=== PATIENT | male | born 1975 | race Caucasian/White ===

== ENCOUNTER 2016-06-27 19:23 | Emergency (ER) | payer MEDICARE, OTHER ==
[~2016-06-27] VITALS: Ht 170.2 cm; Wt 99.8 kg
[~2016-06-27 19:23] MED LIST: /DULO30CA OR; /ESCI20TA OR; /ESCI20TA PO; /METO25TAB PO; /PANT40TA PO; /QUET10TA; ABIL5TAB PO; AMAR1TAB; AMRIX; ATIV0.5T3 PO; BACL10TA2 OR; BUPR15TA PO; BUPROPION PO; CLINDAMYCIN PO; CLON0.5T PO; DEPA250T3 OR; EFFE150C OR; FLUO40CA PO; HYDR10EL PO; HYDRO50TAB PO; KLON1TAB PO; LEVA750T PO; LITH300T2 PO; LYRI150C OR; MIRT15TA50 PO; MULTTAB4 PO; NEUR300C; NICO21DI TD; NICO7DIS4 TD; OLAN5TAB PO; OXYC10TA56; OXYC15TA50; OXYC15TA50 OR; OXYC30TA4 PO; OXYC40TA19; PAME25CA PO; PANT40IN PO; PERC5TAB8 PO; PERCOCET PO; PROZ20CA11 PO; QUET100T PO; SERT-141 PO; TRAM50TA2 OR; TRAZ100T2 PO; VALI5TAB PO; ZOLO100T; ZOLO100T PO; ZOLO50TA PO; ZYPR10TA PO; ZYPR5TAB2 PO; [UNRECOGNIZED DRUG - CODE] MT; [UNRECOGNIZED DRUG - OTHER] PO; effexor; traz; trazadone
[2016-06-27] MEDS ORDERED: ONDANSETRON 4 MG ORAL DISINTEGRATING TAB (S0181) As Ordered ONE (20:26)
[2016-06-27] MEDS ORDERED: KETOROLAC 30 MG/ML VIAL (J1885) As Ordered ONE (20:31)
[2016-06-27] MEDS ORDERED: PILOCARPINE 2% OPHTH 15 ML SOLN XX SCH (20:40)
--- NOTE | 2016-06-27 20:58 | EDDOCDS ---
Nurse's Notes [facility] Name: Jackson Moran Age: 40 yrs Sex: Male : 1975 Arrival Date: 06/27/2016 Time: 19:23 Bed I10 Private MD: [facility], [place] Diagnosis: Acute angle-closure glaucoma, right eye Presentation: 06/27 19:31 Presenting complaint: states: Cold started Wednesday. right eye pain and swelling rs3 since Wednesday. sensitive to light. unsure of vision loss, he has not been reading staying in bed. reports of hazy and blurry vision in right eye. H/o iritis. Mechanism of Injury: No Mechanism of Injury. sensitive to light. not sure. Adult Sepsis Screening: The patient does not have new or worsening altered mentation. Patient's respiratory rate is less than 22. Systolic blood pressure is greater than 100. Patient has a qSOFA score of 0- Negative Sepsis Screen. Suicide/Homicide risk assessment- the patient denies having any suicidal and/or homicidal ideations and does not present with any other emotional, behavioral or mental health complaints. Status: Patient is not a line service person or dependent. Transition of care: patient was not received from another setting of care. 19:31 Acuity: MONSE Level 3 rs3 19:31 Method Of Arrival: Walkin/Carried/Asstd rs3 Triage Assessment: 19:37 General: Appears in no apparent distress. Pain: Location: right eye. HIV screening NA rs3 for this visit Offered previously. EENT: Eyes right eye. Historical: - Allergies: no known allergies; - Home Meds: 1. modafinil 200 mg oral tab once daily 2. clonazepam 0.5 mg Oral tab 2 tabs - PMHx: Anxiety; PTSD; Depression; - PSHx: Cochlear Implant, right; - Social history: Smoking status: Patient uses tobacco products, light tobacco smoker. No barriers to communication noted, Speaks appropriately for age. - Family history: Not pertinent. - : The pt / caregiver states he / she is not on anticoagulants. Home medication list is obtained from the patient. - Exposure Risk Screening:: None identified. Screenin:25 Infection Control. elp 20:35 Screening information is obtained from the patient. Fall risk: No risks identified. ttb Assistance ADL's: requires no assistance with activities of daily living. Abuse/DV Screen: The patient / caregiver reports he/she is: not in a situation that causes fear, pain or injury. Nutritional screening: No deficits noted. Advance Directives: Currently, there is no health care proxy. home support is adequate. Assessment: 20:35 General: Appears uncomfortable, well nourished, Behavior is anxious, restless. Pain: ttb Location: right eye. Neurological: Level of Consciousness is awake, alert. EENT: Sclera/Cornea are reddened in right eye. Respiratory: No deficits noted. Airway is patent Denies cough, shortness of breath. Derm: Skin is normal. Injury Description: No known injury. 20:37 General: pt requests pain meds. Aware we are waiting on meds from pharmacy. Pt to f/u ttb with mortgage accounting clerk in office now.. 20:56 Reassessment: pt given drops and is ready for DC. ttb Vital Signs: 19:25 BP 166 / 107; Pulse 91; Resp 18; Temp 96.6(O); Pulse Ox 96% on R/A; Weight 99.79 kg elp (R); Height 67 in. (170.18 cm) (R); Pain 8/10; 20:56 BP 165 / 102; Pulse 78; Resp 20; Temp 97.2; Pulse Ox 100% on R/A; Pain 8/10; ttb 19:25 Body Mass Index 34.46 (99.79 kg, 170.18 cm) elp Vitals: 19:25 Log In Time: June 27, 2016 at 19:23. elp Visual Acuity: 19:52 Left Eye Visual acuity 20/20, ; Both Eyes Visual acuity 20/20; Without Lenses; L eye rs3 blurry ED Course: 19:24 Patient visited by Erika Marcial PCA. elp 19:24 Patient moved to Waiting elp 19:25 [facility] [place] is Private Physician. elp 19:26 Patient visited by Erika Marcial PCA. elp 19:26 Patient moved to Pre RCE elp 19:35 Triage Initiated rs3 19:46 Patient moved to I10 / 23 sls1 19:49 Arias Chang DO is Attending Physician. mm11 19:49 Patient visited by Arias Chang DO. mm11 20:03 Patient visited by Arias Chang DO. mm11 20:10 Mallorie Benoit is Referral Physician. mm11 20:35 The patient / caregiver is instructed regarding the plan of care and ED course. ttb Accompanied by Significant Other, Patient has correct armband on for positive identification. 20:35 No IV's were initiated during this patient's visit. No procedures done that require ttb assistance. 20:56 Patient visited by Chrissie Yan RN. ttb Administered Medications: 20:07 CANCELLED (Other Intervention Used): Ondansetron 4 mg IVP once mm11 20:30 Drug: Ondansetron ODT 8 mg [ondansetron 4 mg disintegrating tablet (2 tabs)] Route: PO; ttb 20:35 Drug: ketorolac 60 mg [ketorolac 30 mg/mL (1 mL) injection solution (2 mL)] Route: IM; ttb Site: right gluteus; 20:57 Follow up: Response: No Adverse Reaction ttb 20:56 Drug: Pilocarpine 1 drps [pilocarpine 2 % eye drops (1 drps)] Route: Ophthalmic; Site: ttb right eye; Order Results: There are currently no results for this order. Outcome: 20:11 Discharge ordered by Provider. mm11 20:35 Discharge Assessment: Patient awake, alert and oriented x 3. No cognitive and/or ttb functional deficits noted. Patient verbalized understanding of disposition instructions. Patient awake and alert. patient administered narcotics - no. The following High Risk Discharge criteria are identified: None. Discharged to home ambulatory, with significant other. Condition: stable. Discharge instructions given to patient, significant other, Demonstrated understanding of instructions, medications, f/u with mortgage accounting clerk now Pt was receptive of discharge instructions/ teaching. No special radiology studies were completed. Property :Personal belongings accompany Pt. 20:57 Patient left the ED. ttb Signatures: Arias Chang DO DO mm11 Daksha MaxRN RN rs3 Natalie Hannon RN RN sls1 Chrissie Yan RN RN ttb Patchen, Erika, CRYPTOLOGIC LINGUIST CRYPTOLOGIC LINGUIST elp Corrections: (The following items were deleted from the chart) 19:54 19:31 Presenting complaint: states: Cold started Wednesday. right eye pain and rs3 swelling since Wednesday. sensitive to light. unsure of vision loss, he has not been reading staying in bed. H/o iritis. rs3 MTDD
--- NOTE | 2016-06-27 20:58 | EDDOCDS ---
Physician Documentation [facility] Name: Jackson Moran Age: 40 yrs Sex: Male : 1975 Arrival Date: 06/27/2016 Time: 19:23 Bed I10 / 23 Private MD: [facility] Disposition: 06/27/16 20:11 Discharged to Home/Self Care. Impression: Acute angle-closure glaucoma, right eye. - Condition is Stable. - Discharge Instructions: Glaucoma, Glaucoma Surgery, Care After. - Medication Reconciliation, Local Pharmacy Hours form. - Follow up: Mallorie Benoit; When: Upon discharge from the Emergency Department; Reason: Continuance of care. - Problem is new. - Symptoms are unchanged. - Notes: PER DR. BENOIT: PROCEED DIRECTLY TO HER OFFICE. SHE WILL MEET YOU THERE AND BE ABLE TO MEASURE THE PRESSURE IN YOUR EYE AND IF NECESSARY, PERFORM PROCEDURE NECESSARY TO CORRECT. RETURN TO THE ER IF YOU SYMPTOMS HAVE NOT SIGNIFICANTLY IMPROVED AFTER SEEING HER. Historical: - Allergies: no known allergies; - Home Meds: 1. modafinil 200 mg oral tab once daily 2. clonazepam 0.5 mg Oral tab 2 tabs - PMHx: Anxiety; PTSD; Depression; - PSHx: Cochlear Implant, right; - Social history: Smoking status: Patient uses tobacco products, light tobacco smoker. No barriers to communication noted, Speaks appropriately for age. - Family history: Not pertinent. - : The pt / caregiver states he / she is not on anticoagulants. Home medication list is obtained from the patient. - Exposure Risk Screening:: None identified. Vital Signs: 06/27 19:25 BP 166 / 107; Pulse 91; Resp 18; Temp 96.6(O); Pulse Ox 96% on R/A; Weight 99.79 kg / elp 220 lbs (R); Height 67 in. (170.18 cm) (R); Pain 8/10; 20:56 BP 165 / 102; Pulse 78; Resp 20; Temp 97.2; Pulse Ox 100% on R/A; Pain 8/10; ttb 19:25 Body Mass Index 34.46 (99.79 kg, 170.18 cm) elp Visual Acuity: 19:52 Left Eye Visual acuity 20/20, ; Both Eyes Visual acuity 20/20; Without Lenses; L eye rs3 blurry MDM: 19:49 Tonopen XL to provider ordered. mm11 19:52 Visual Acuity ordered. rs3 20:07 Pilocarpine Drops 2 % 1 drps Ophthalmic once ordered. mm11 20:07 Ondansetron ODT Oral Disintegrating Tablet 8 mg PO once ordered. mm11 20:30 ketorolac 60 mg IM once ordered. mm11 20:35 ketorolac 60 mg IM once ordered. ttb Administered Medications: 20:07 CANCELLED (Other Intervention Used): Ondansetron 4 mg IVP once mm11 20:30 Drug: Ondansetron ODT 8 mg [ondansetron 4 mg disintegrating tablet (2 tabs)] Route: PO; ttb 20:35 Drug: ketorolac 60 mg [ketorolac 30 mg/mL (1 mL) injection solution (2 mL)] Route: IM; ttb Site: right gluteus; 20:57 Follow up: Response: No Adverse Reaction ttb 20:56 Drug: Pilocarpine 1 drps [pilocarpine 2 % eye drops (1 drps)] Route: Ophthalmic; Site: ttb right eye; Signatures: Arias Chang DO DO mm11 Daksha Max RN RN rs3 Chrissie Yan RN RN ttb The chart was reviewed and I authenticate all verbal orders and agree with the evaluation and treatment provided.Corrections: (The following items were deleted from the chart) 20:07 20:07 Ondansetron 4 mg IVP once ordered. mm11 mm11 MTDD
--- NOTE | 2016-06-29 21:58 | EDDOCDS ---
Nurse's Notes Name: Jackson Moran Age: 40 yrs Sex: Male : 1975 Arrival Date: 06/27/2016 Time: 19:23 Bed I10 Private MD: [facility], [place] Diagnosis: Acute angle-closure glaucoma, right eye Presentation: 06/27 19:31 Presenting complaint: states: Cold started Wednesday. right eye pain and swelling rs3 since Wednesday. sensitive to light. unsure of vision loss, he has not been reading staying in bed. reports of hazy and blurry vision in right eye. H/o iritis. Mechanism of Injury: No Mechanism of Injury. sensitive to light. not sure. Adult Sepsis Screening: The patient does not have new or worsening altered mentation. Patient's respiratory rate is less than 22. Systolic blood pressure is greater than 100. Patient has a qSOFA score of 0- Negative Sepsis Screen. Suicide/Homicide risk assessment- the patient denies having any suicidal and/or homicidal ideations and does not present with any other emotional, behavioral or mental health complaints. Status: Patient is not a service dispatcher or dependent. Transition of care: patient was not received from another setting of care. 19:31 Acuity: MONSE Level 3 rs3 19:31 Method Of Arrival: Walkin/Carried/Asstd rs3 Triage Assessment: 19:37 General: Appears in no apparent distress. Pain: Location: right eye. HIV screening NA rs3 for this visit Offered previously. EENT: Eyes right eye. Historical: - Allergies: no known allergies; - Home Meds: 1. modafinil 200 mg oral tab once daily 2. clonazepam 0.5 mg Oral tab 2 tabs - PMHx: Anxiety; PTSD; Depression; - PSHx: Cochlear Implant, right; - Social history: Smoking status: Patient uses tobacco products, light tobacco smoker. No barriers to communication noted, Speaks appropriately for age. - Family history: Not pertinent. - : The pt / caregiver states he / she is not on anticoagulants. Home medication list is obtained from the patient. - Exposure Risk Screening:: None identified. Screenin:25 Infection Control. elp 20:35 Screening information is obtained from the patient. Fall risk: No risks identified. ttb Assistance ADL's: requires no assistance with activities of daily living. Abuse/DV Screen: The patient / caregiver reports he/she is: not in a situation that causes fear, pain or injury. Nutritional screening: No deficits noted. Advance Directives: Currently, there is no health care proxy. home support is adequate. Assessment: 20:35 General: Appears uncomfortable, well nourished, Behavior is anxious, restless. Pain: ttb Location: right eye. Neurological: Level of Consciousness is awake, alert. EENT: Sclera/Cornea are reddened in right eye. Respiratory: No deficits noted. Airway is patent Denies cough, shortness of breath. Derm: Skin is normal. Injury Description: No known injury. 20:37 General: pt requests pain meds. Aware we are waiting on meds from pharmacy. Pt to f/u ttb with physician aide in office now.. 20:56 Reassessment: pt given drops and is ready for DC. ttb Vital Signs: 19:25 BP 166 / 107; Pulse 91; Resp 18; Temp 96.6(O); Pulse Ox 96% on R/A; Weight 99.79 kg elp (R); Height 67 in. (170.18 cm) (R); Pain 8/10; 20:56 BP 165 / 102; Pulse 78; Resp 20; Temp 97.2; Pulse Ox 100% on R/A; Pain 8/10; ttb 19:25 Body Mass Index 34.46 (99.79 kg, 170.18 cm) elp Vitals: 19:25 Log In Time: June 27, 2016 at 19:23. elp Visual Acuity: 19:52 Left Eye Visual acuity 20/20, ; Both Eyes Visual acuity 20/20; Without Lenses; L eye rs3 blurry ED Course: 19:24 Patient visited by Erika Marcial PCA. elp 19:24 Patient moved to Waiting elp 19:25 [facility], [place] is Private Physician. elp 19:26 Patient visited by Erika Marcial PCA. elp 19:26 Patient moved to Pre RCE elp 19:35 Triage Initiated rs3 19:46 Patient moved to I10 / 23 sls1 19:49 Arias Chang DO is Attending Physician. mm11 19:49 Patient visited by Arias Chang DO. mm11 20:03 Patient visited by Arias Chang DO. mm11 20:10 Mallorie Benoit is Referral Physician. mm11 20:35 The patient / caregiver is instructed regarding the plan of care and ED course. ttb Accompanied by Significant Other, Patient has correct armband on for positive identification. 20:35 No IV's were initiated during this patient's visit. No procedures done that require ttb assistance. 20:56 Patient visited by Chrissie Yan RN. ttb 06/28 22:04 T-Sheet-- Draft Copy was scanned into [employer] and attached to record. klr Administered Medications: 06/27 20:07 CANCELLED (Other Intervention Used): Ondansetron 4 mg IVP once mm11 20:30 Drug: Ondansetron ODT 8 mg [ondansetron 4 mg disintegrating tablet (2 tabs)] Route: PO; ttb 20:35 Drug: ketorolac 60 mg [ketorolac 30 mg/mL (1 mL) injection solution (2 mL)] Route: IM; ttb Site: right gluteus; 20:57 Follow up: Response: No Adverse Reaction ttb 20:56 Drug: Pilocarpine 1 drps [pilocarpine 2 % eye drops (1 drps)] Route: Ophthalmic; Site: ttb right eye; Order Results: There are currently no results for this order. Outcome: 20:11 Discharge ordered by Provider. mm11 20:35 Discharge Assessment: Patient awake, alert and oriented x 3. No cognitive and/or ttb functional deficits noted. Patient verbalized understanding of disposition instructions. Patient awake and alert. patient administered narcotics - no. The following High Risk Discharge criteria are identified: None. Discharged to home ambulatory, with significant other. Condition: stable. Discharge instructions given to patient, significant other, Demonstrated understanding of instructions, medications, f/u with physician aide now Pt was receptive of discharge instructions/ teaching. No special radiology studies were completed. Property :Personal belongings accompany Pt. 20:57 Patient left the ED. ttb Signatures: Arias Chang DO DO mm11 Daksha Max RN RN rs3 Natalie Hannon RN RN sls1 Chrissie Yan RN RN ttb Patchen, Erika, CHIEF CRNA CHIEF CRNA elp Redder, Shauna klr Corrections: (The following items were deleted from the chart) 19:54 19:31 Presenting complaint: states: Cold started Wednesday. right eye pain and rs3 swelling since Wednesday. sensitive to light. unsure of vision loss, he has not been reading staying in bed. H/o iritis. rs3 Chart Complete MTDD
--- NOTE | 2016-06-29 21:58 | EDDOCDS ---
Physician Documentation [facility] Name: Jackson Moran Age: 40 yrs Sex: Male : 1975 Arrival Date: 06/27/2016 Time: 19:23 Bed I10 / 23 Private MD: [facility] Disposition: 06/27/16 20:11 Discharged to Home/Self Care. Impression: Acute angle-closure glaucoma, right eye. - Condition is Stable. - Discharge Instructions: Glaucoma, Glaucoma Surgery, Care After. - Medication Reconciliation, Local Pharmacy Hours form. - Follow up: Mallorie Benoit; When: Upon discharge from the Emergency Department; Reason: Continuance of care. - Problem is new. - Symptoms are unchanged. - Notes: PER DR. BENOIT: PROCEED DIRECTLY TO HER OFFICE. SHE WILL MEET YOU THERE AND BE ABLE TO MEASURE THE PRESSURE IN YOUR EYE AND IF NECESSARY, PERFORM PROCEDURE NECESSARY TO CORRECT. RETURN TO THE ER IF YOU SYMPTOMS HAVE NOT SIGNIFICANTLY IMPROVED AFTER SEEING HER. Historical: - Allergies: no known allergies; - Home Meds: 1. modafinil 200 mg oral tab once daily 2. clonazepam 0.5 mg Oral tab 2 tabs - PMHx: Anxiety; PTSD; Depression; - PSHx: Cochlear Implant, right; - Social history: Smoking status: Patient uses tobacco products, light tobacco smoker. No barriers to communication noted, Speaks appropriately for age. - Family history: Not pertinent. - : The pt / caregiver states he / she is not on anticoagulants. Home medication list is obtained from the patient. - Exposure Risk Screening:: None identified. Vital Signs: 06/27 19:25 BP 166 / 107; Pulse 91; Resp 18; Temp 96.6(O); Pulse Ox 96% on R/A; Weight 99.79 kg / elp 220 lbs (R); Height 67 in. (170.18 cm) (R); Pain 8/10; 20:56 BP 165 / 102; Pulse 78; Resp 20; Temp 97.2; Pulse Ox 100% on R/A; Pain 8/10; ttb 19:25 Body Mass Index 34.46 (99.79 kg, 170.18 cm) elp Visual Acuity: 19:52 Left Eye Visual acuity 20/20, ; Both Eyes Visual acuity 20/20; Without Lenses; L eye rs3 blurry MDM: 19:49 Tonopen XL to provider ordered. mm11 19:52 Visual Acuity ordered. rs3 20:07 Pilocarpine Drops 2 % 1 drps Ophthalmic once ordered. mm11 20:07 Ondansetron ODT Oral Disintegrating Tablet 8 mg PO once ordered. mm11 20:30 ketorolac 60 mg IM once ordered. mm11 20:35 ketorolac 60 mg IM once ordered. ttb 06/28 22:04 T-Sheet-- Draft Copy was scanned into [employer] and attached to record. klr Administered Medications: 06/27 20:07 CANCELLED (Other Intervention Used): Ondansetron 4 mg IVP once mm11 20:30 Drug: Ondansetron ODT 8 mg [ondansetron 4 mg disintegrating tablet (2 tabs)] Route: PO; ttb 20:35 Drug: ketorolac 60 mg [ketorolac 30 mg/mL (1 mL) injection solution (2 mL)] Route: IM; ttb Site: right gluteus; 20:57 Follow up: Response: No Adverse Reaction ttb 20:56 Drug: Pilocarpine 1 drps [pilocarpine 2 % eye drops (1 drps)] Route: Ophthalmic; Site: ttb right eye; Signatures: Arias Chang DO DO mm11 Daksha Max RN RN rs3 Chrissie Yan RN RN ttb Shauna King The chart was reviewed and I authenticate all verbal orders and agree with the evaluation and treatment provided.Corrections: (The following items were deleted from the chart) 20: 20:07 Ondansetron 4 mg IVP once ordered. mm11 mm11 Attachments: 06/28 22:04 T-Sheet-- Draft Copy klr Chart Complete MTDD
--- NOTE | 2016-06-29 21:58 | EDDOCDS ---
Physician Documentation [facility] Name: Jackson Moran Age: 40 yrs Sex: Male : 1975 Arrival Date: 06/27/2016 Time: 19:23 Bed I10 / 23 Private MD: [facility] Disposition: 06/27/16 20:11 Discharged to Home/Self Care. Impression: Acute angle-closure glaucoma, right eye. - Condition is Stable. - Discharge Instructions: Glaucoma, Glaucoma Surgery, Care After. - Medication Reconciliation, Local Pharmacy Hours form. - Follow up: Mallorie Benoit; When: Upon discharge from the Emergency Department; Reason: Continuance of care. - Problem is new. - Symptoms are unchanged. - Notes: PER DR. BENOIT: PROCEED DIRECTLY TO HER OFFICE. SHE WILL MEET YOU THERE AND BE ABLE TO MEASURE THE PRESSURE IN YOUR EYE AND IF NECESSARY, PERFORM PROCEDURE NECESSARY TO CORRECT. RETURN TO THE ER IF YOU SYMPTOMS HAVE NOT SIGNIFICANTLY IMPROVED AFTER SEEING HER. Historical: - Allergies: no known allergies; - Home Meds: 1. modafinil 200 mg oral tab once daily 2. clonazepam 0.5 mg Oral tab 2 tabs - PMHx: Anxiety; PTSD; Depression; - PSHx: Cochlear Implant, right; - Social history: Smoking status: Patient uses tobacco products, light tobacco smoker. No barriers to communication noted, Speaks appropriately for age. - Family history: Not pertinent. - : The pt / caregiver states he / she is not on anticoagulants. Home medication list is obtained from the patient. - Exposure Risk Screening:: None identified. Vital Signs: 06/27 19:25 BP 166 / 107; Pulse 91; Resp 18; Temp 96.6(O); Pulse Ox 96% on R/A; Weight 99.79 kg / elp 220 lbs (R); Height 67 in. (170.18 cm) (R); Pain 8/10; 20:56 BP 165 / 102; Pulse 78; Resp 20; Temp 97.2; Pulse Ox 100% on R/A; Pain 8/10; ttb 19:25 Body Mass Index 34.46 (99.79 kg, 170.18 cm) elp Visual Acuity: 19:52 Left Eye Visual acuity 20/20, ; Both Eyes Visual acuity 20/20; Without Lenses; L eye rs3 blurry MDM: 19:49 Tonopen XL to provider ordered. mm11 19:52 Visual Acuity ordered. rs3 20:07 Pilocarpine Drops 2 % 1 drps Ophthalmic once ordered. mm11 20:07 Ondansetron ODT Oral Disintegrating Tablet 8 mg PO once ordered. mm11 20:30 ketorolac 60 mg IM once ordered. mm11 20:35 ketorolac 60 mg IM once ordered. ttb 06/28 22:04 T-Sheet-- Draft Copy was scanned into [employer] and attached to record. klr Administered Medications: 06/27 20:07 CANCELLED (Other Intervention Used): Ondansetron 4 mg IVP once mm11 20:30 Drug: Ondansetron ODT 8 mg [ondansetron 4 mg disintegrating tablet (2 tabs)] Route: PO; ttb 20:35 Drug: ketorolac 60 mg [ketorolac 30 mg/mL (1 mL) injection solution (2 mL)] Route: IM; ttb Site: right gluteus; 20:57 Follow up: Response: No Adverse Reaction ttb 20:56 Drug: Pilocarpine 1 drps [pilocarpine 2 % eye drops (1 drps)] Route: Ophthalmic; Site: ttb right eye; Signatures: Arias Chang DO DO mm11 Daksha Max RN RN rs3 Chrissie Yan RN RN ttb Shauna King The chart was reviewed and I authenticate all verbal orders and agree with the evaluation and treatment provided.Corrections: (The following items were deleted from the chart) 20: 20:07 Ondansetron 4 mg IVP once ordered. mm11 mm11 Attachments: 06/28 22:04 T-Sheet-- Draft Copy klr Chart Complete MTDD
== END 2016-06-27 20:57 | disposition home or self-care (01) ==
LOC: M ED 19:23
DX: H40.211 Acute angle-closure glaucoma, right eye (principal); F41.9 Anxiety disorder, unspecified; F33.9 Major depressive disorder, recurrent, unspecified; F43.10 Post-traumatic stress disorder, unspecified; F17.200 Nicotine dependence, unspecified, uncomplicated; Z96.21 Cochlear implant status; Z79.899 Other long term (current) drug therapy
CPT/HCPCS: 96372; 99283; J1885

== ENCOUNTER 2017-03-08 10:21 | Emergency (ER) | payer OTHER, MEDICARE ==
[~2017-03-08] VITALS: Ht 170.2 cm; Wt 106.8 kg
[~2017-03-08 10:21] MED LIST changes: -LEVA750T PO; +LEVA750T7 PO
[2017-03-08] MEDS ORDERED: VENL75TA2 PO (10:36)
[2017-03-08] MEDS ORDERED: PRAZ5CAP PO (10:36)
[2017-03-08] MEDS ORDERED: MODA200T15 PO (10:36)
[2017-03-08] MEDS ORDERED: QUET5TAB PO (10:36)
[2017-03-08] MEDS ORDERED: VIVI380I IM (10:36)
[2017-03-08] MEDS ORDERED: MIRT15TA3 PO (10:36)
[2017-03-08] MEDS ORDERED: ATOR1TAB21 PO (10:36)
[2017-03-08 11:36] LABS: BASO % 0.4 % (0.0-1.0); EOS # 0.2 10^3/uL (0.0-0.50); EOS % 1.5 % (0.0-3.0); IMMATURE GRANULOCYTE % 0.6 % (0-0); LYMPH # 2.4 10^3/uL (1.5-4.5); LYMPH % 22.7 % (24.0-44.0); MEAN CORPUSCULAR HEMOGLOBIN 30.1 pg (27.0-33.0); MEAN CORPUSCULAR HGB CONC 34.7 g/dl (32.0-36.5); MEAN CORPUSCULAR VOLUME 86.6 fl (80.0-96.0); MONO # 0.8 10^3/uL (0.0-0.8); MONO % 7.9 % (0.0-5.0); NEUTROPHILS # 7.2 10^3/uL (1.8-7.7); NEUTROPHILS % 66.9 % (36.0-66.0); PLATELET COUNT, AUTOMATED 321 10^3/uL (150-450); RED CELL DISTRIBUTION WIDTH 13.1 % (11.5-14.5); WHITE BLOOD COUNT 10.7 10^3/uL (4.0-10.0)
[2017-03-08 11:50] LABS: ADD MANUAL DIFFER NO; DIFF SLIDE NUMBER 193
[2017-03-08 12:20] LABS: ALBUMIN 4.1 GM/DL (3.2-5.2); ALBUMIN/GLOBULIN RATIO 1.37 (1.00-1.93); ALKALINE PHOSPHATASE 77 U/L (45-117); ALT/SGPT 91 U/L (12-78); ANION GAP 7 MEQ/L (8-16); AST/SGOT 60 U/L (15-37); BILIRUBIN,TOTAL 0.7 MG/DL (0.2-1.0); BLOOD UREA NITROGEN 16 MG/DL (7-18); CALCIUM LEVEL 9.9 MG/DL (8.5-10.1); CARBON DIOXIDE LEVEL 29 MEQ/L (21-32); CHLORIDE LEVEL 102 MEQ/L (98-107); CREATININE FOR GFR 0.96 MG/DL (0.70-1.30); GLOMERULAR FILTRATION RATE > 60.0 (>60); GLUCOSE, FASTING 97 MG/DL (70-105); POTASSIUM SERUM 4.1 MEQ/L (3.5-5.1); SODIUM LEVEL 138 MEQ/L (136-145); TOTAL PROTEIN 7.1 GM/DL (6.4-8.2)
[2017-03-08] MEDS ORDERED: ISOVUE-370 76% 100ML VIAL (Q9967) As Ordered ONE (12:22)
[2017-03-08] MEDS ORDERED: KETOROLAC 30 MG/ML VIAL (J1885) IV ONE (13:30)
--- NOTE | 2017-03-08 13:36 | REP ---
CT abdomen and is with IV but without oral contrast: History: Central abdominal pain. Right inguinal hernia. Comparison CT study is from [facility], July 29, 2011. CT contrast dose: [address] findings: Digital preliminary managed care provider radiograph demonstrates an unremarkable bowel gas pattern. The lung bases are clear. There is no evidence of pleural effusion. There is moderate diffuse fatty infiltration of the liver. This is more pronounced than on the prior study. There are granulomatous calcifications scattered about the spleen and to a lesser extent the liver. The gallbladder and pancreas are unremarkable. No adrenal lesion is seen on either side. The kidneys enhance symmetrically and are morphologically intact. No urinary tract calculus is seen. No hydronephrosis is noted. A normal appendix is seen in the right lower quadrant. Seminal vesicles and prostate and urinary bladder are unremarkable. There is a small periumbilical ventral hernia transmitting abdominal fat through a 1.6 cm wide defect. No other abdominal wall defect is seen. No bony destructive lesion is seen. Impression: Moderate diffuse fatty infiltration of the liver. No hepatomegaly. Old granulomatous changes. Paraumbilical hernia transmits a small quantity of abdominal fat. Otherwise negative CT abdomen and pelvis. Signed by Abdi Nunez MD 03/08/2017 02:13 P
--- NOTE | 2017-03-08 14:45 | REP ---
RIGHT INGUINAL SONOGRAPHY: HISTORY: Right inguinal pain. FINDINGS: Scanning through the right and left inguinal canal region is performed at rest and with Valsalva. No hernia is seen on either side. No cyst mass or abnormal fluid collection is observed. There is no evidence of adenopathy. IMPRESSION: Negative bilateral inguinal sonography. Signed by Abdi Nunez MD 03/08/2017 04:44 P
[2017-03-08 14:55] VITALS: BP 142/96
[2017-03-08] MEDS ORDERED: CLEO300C2 PO (14:57)
--- NOTE | 2017-03-08 14:57 | REP ---
Scrotal sonography: History: Inguinal pain. Findings: There are minimal bilateral hydroceles. No evidence of intratesticular mass lesion is seen. Testicular Doppler flow is normal bilaterally. Resistive index on the right is 0.58 and that on the left is 0.65. Right testicular dimensions are 4.6 x 2.1 x 3.1 cm. Left testis measures 4.9 x 2.5 x 3.1 cm. There is a small epididymal head cyst on the left, 5 mm. No evidence of torsion. Normal appendix testis is visible bilaterally. Impression: No significant abnormality noted. Normal Doppler flow. No intratesticular mass lesion seen. Signed by Abdi Nunez MD 03/08/2017 04:44 P
== END 2017-03-08 15:05 | disposition home or self-care (01) ==
LOC: M ED 10:21
DX: L03.314 Cellulitis of groin (principal); K76.0 Fatty (change of) liver, not elsewhere classified; K42.9 Umbilical hernia without obstruction or gangrene; F17.200 Nicotine dependence, unspecified, uncomplicated; G43.909 Migraine, unspecified, not intractable, without status migrainosus; R56.9 Unspecified convulsions; Z87.820 Personal history of traumatic brain injury; H90.5 Unspecified sensorineural hearing loss; I10 Essential (primary) hypertension; Z96.21 Cochlear implant status; G89.29 Other chronic pain; M54.9 Dorsalgia, unspecified; M51.9 Unspecified thoracic, thoracolumbar and lumbosacral intervertebral disc disorder; F19.10 Other psychoactive substance abuse, uncomplicated; F41.9 Anxiety disorder, unspecified; F32.9 Major depressive disorder, single episode, unspecified; Z91.5 Personal history of self-harm; Z86.14 Personal history of Methicillin resistant Staphylococcus aureus infection; Z79.899 Other long term (current) drug therapy
CPT/HCPCS: 74177; 76857; 76870; 80053; 85025; 93976; 96374; 99283; J1885; Q9967

== ENCOUNTER 2018-02-14 13:53 | Emergency (ER) | payer OTHER, MEDICARE | END 2018-02-14 15:23 | disposition left against medical advice (07) | LOC: M ED 13:53 | DX: Z53.21 Procedure and treatment not carried out due to patient leaving prior to being seen by health care provider (principal) ==

== ENCOUNTER 2018-07-06 12:18 | Inpatient (IN) | payer MEDICARE, OTHER ==
[~2018-07-06] VITALS: Ht 170.2 cm; Wt 110.9 kg
[~2018-07-06 12:18] MED LIST changes: +ATOR1TAB21 PO; +CLEO300C2 PO; +MIRT15TA3 PO; +MODA200T15 PO; +PRAZ5CAP PO; +QUET5TAB PO; +VENL75TA2 PO; +VIVI380I IM
[2018-07-06] MEDS ORDERED: NS 1,000 ML IV ONE (12:30)
[2018-07-06] MEDS ORDERED: KETOROLAC 30 MG/ML VIAL (J1885) IV ONE (12:30)
[2018-07-06] MEDS ORDERED: METO1TAB32 PO (12:37)
[2018-07-06] MEDS ORDERED: D200CAP3 PO (12:37)
[2018-07-06] MEDS ORDERED: HCTZ PO (12:37)
[2018-07-06] MEDS ORDERED: PRAZ2CAP PO (12:37)
[2018-07-06] MEDS ORDERED: AMLO10TA5 PO (12:37)
[2018-07-06] MEDS ORDERED: LISINOPRIL PO (12:37)
[2018-07-06 13:01] LABS: BASO % 0.2 % (0.0-1.0); EOS # 0.1 10^3/uL (0.0-0.50); EOS % 0.9 % (0.0-3.0); HEMATOCRIT 32.2 % (42.0-52.0); LYMPH # 1.5 10^3/uL (1.5-4.5); LYMPH % 14.8 % (24.0-44.0); MEAN CORPUSCULAR HEMOGLOBIN 30.7 pg (27.0-33.0); MEAN CORPUSCULAR HGB CONC 34.2 g/dl (32.0-36.5); MEAN CORPUSCULAR VOLUME 89.9 fl (80.0-96.0); MONO # 0.7 10^3/uL (0.0-0.8); MONO % 6.9 % (0.0-5.0); NEUTROPHILS % 76.4 % (36.0-66.0); PLATELET COUNT, AUTOMATED 363 10^3/uL (150-450); RED BLOOD COUNT 3.58 10^6/uL (4.30-6.10); WHITE BLOOD COUNT 10.4 10^3/uL (4.0-10.0)
[2018-07-06 13:13] LABS: INR 1.21; PROTHROMBIN TIME 15.5 SECONDS (12.1-14.4)
[2018-07-06 13:37] LABS: ERYTHROCYTE SEDIMENTATION RATE 127 mm/hr (0-15)
[2018-07-06 13:54] LABS: ALBUMIN 3.1 GM/DL (3.2-5.2); ALT/SGPT 39 U/L (12-78); BILIRUBIN,DIRECT < 0.1 MG/DL (0.0-0.2); BILIRUBIN,TOTAL 0.3 MG/DL (0.2-1.0); BLOOD UREA NITROGEN 28 MG/DL (7-18); CALCIUM LEVEL 8.8 MG/DL (8.5-10.1); CARBON DIOXIDE LEVEL 25 MEQ/L (21-32); CHLORIDE LEVEL 97 MEQ/L (98-107); CREATININE FOR GFR 0.99 MG/DL (0.70-1.30); GLOMERULAR FILTRATION RATE > 60.0 (>60); GLUCOSE, FASTING 134 MG/DL (70-100); LIPASE 104 U/L (73-393); POTASSIUM SERUM 4.4 MEQ/L (3.5-5.1); SODIUM LEVEL 132 MEQ/L (136-145); TOTAL PROTEIN 6.3 GM/DL (6.4-8.2)
[2018-07-06] MEDS ORDERED: ISOVUE-370 76% 100ML VIAL (Q9967) As Ordered ONE (14:06)
--- NOTE | 2018-07-06 15:36 | REP ---
CT NECK WITH CONTRAST: HISTORY: Postoperative. CONTRAST: Isovue 370, 75 mL. The patient is status post right mastoidectomy. Soft tissue density is present at the mastoidectomy site. This likely represents scar tissue. There is partial opacification of the residual right mastoid air cells. There is partial opacification of the left mastoid air cells. There is soft tissue thickening along the buccal surface of the body and angle of the right mandible. This represents a small phlegmon. There is enlargement of the right masseter, mylohyoid and platysma muscles. Increased density is present in the adjacent subcutaneous tissue. This is consistent with edema. There is no mass effect on the billie- or hypopharynx. The nasopharynx, larynx and subglottic trachea are normal in appearance. The salivary and thyroid glands are normal in size and density. Small lymph nodes less than 1 cm in size are present in the internal jugular chains, posterior triangles, submandibular, and submental areas. Minimal degenerative change is present in the cervical spine. The lung apices are clear. The visualized sinuses are clear. IMPRESSION: 1. The patient is status post right mastoidectomy. Soft tissue density is present at the right mastoidectomy site. This likely represents granulation tissue. There is partial opacification of the residual right mastoid air cells and left mastoid air cells. 2. There is soft tissue thickening along the buccal surface of the body and angle of the right mandible consistent with a phlegmon. Edema is present in the adjacent musculature. There is no mass effect on the billie- or hypopharynx. Electronically Signed by Shen Toledo MD 07/06/2018 03:43 P
[2018-07-06] MEDS ORDERED: CLINDAMYCIN 900 MG in APPROPRIATE DILUENT 1 EA IV ONE (16:15)
[2018-07-06] MEDS ORDERED: PATIENT COMMENTS (16:53)
[2018-07-06] MEDS ORDERED: LISI20TA PO (16:53)
[2018-07-06] MEDS ORDERED: BISACODYL 5 MG TAB PO PRN (17:15)
[2018-07-06] MEDS ORDERED: ACETAMINOPHEN TAB 650MG DOSE (2X325MG) PO PRN (17:15)
[2018-07-06] MEDS ORDERED: MORPHINE 4 MG/ML 1ML VIAL/SYRINGE (J2270) IV PRN (17:15)
[2018-07-06] MEDS ORDERED: PERCOCET 5MG/325MG TAB PO PRN (17:15)
[2018-07-06] MEDS ORDERED: ONDANSETRON 4 MG TAB (S0181) PO PRN (17:15)
[2018-07-06] MEDS ORDERED: KETOROLAC 30 MG/ML VIAL (J1885) IV PRN ×2 (17:45→18:30)
--- NOTE | 2018-07-06 17:45 | HPEPDOC ---
[facility] Medical History & Physical Date of Admission Jul 06, 2018 History and Physical CHIEF COMPLAINT: [right jaw pain ] HISTORY OF PRESENT ILLNESS: This is a 42 yo male with pmhx of htn who presented to the ED for right jaw pain. Patient pulled one of his molar tooth out by himself a few weeks ago and now c/o moderate to severe pain 8/10 in his right jaw, with difficulty eating and said he hasn't eaten for the past 4 days. He denied fever chills, chest pain , nausea or vomiting. He also said he tripped yesterday and fell on his face, but denied any complaints. He has multiple areas of abrasion/burnt appearance on his face which he said is due to howe bites . PAST MEDICAL HISTORY: Migraines, depression, chronic back pain with bulging discs L3-L4, posttraumatic stress disorder, polysubstance abuse, including IV heroin and cocaine inhalation,- said he has been clean for 4 yrs FAMILY HISTORY: Mother with lymphoma. SOCIAL HISTORY: Continues to use tobacco five cigarettes per day. no longer uses IV heroin. Retired from . The patient has had previous overdoses with Suboxone and Zoloft and previous use of methadone, crystal meth, heroin. PAST SURGICAL HISTORY: right cochlear implant, tonsillectomy. SOCIAL HISTORY: Tobacco use:[y] ETOH: [n] Illicit drug use: [n] Tattoos done unprofessionally: [y]. IV drug use: [n] FAMILY HISTORY: patient denied any family hx ALLERGIES: Please see below. HOME MEDICATIONS: Please see below. REVIEW OF SYSTEMS: All 14 points ROS is negative except what's stated in HPI PHYSICAL EXAMINATION: GEN: mild distress due to pain , HEENT- face is very tender to touch, malodorous oral cavity , copious amount of exudate in the right gumline no tooth noted CVS: Normal S1/s2, no murmurs, rubs or gallops, RESP: Lungs are clear to auscultation bilaterally, no crackles, wheezes or rho nchi Abd: soft, nontender, nondistended, + BS MSK: full ROM, 5/5 strength in all extremities Integumentary: no rash, multiple areas of abrasion /burn on face on ears , Neuro: AOAx3, no focal deficit psych: normal mood, good judgement and cooperative LABORATORY DATA: See below. IMAGING: CT neck The patient is status post right mastoidectomy. Soft tissue density is present at the right mastoidectomy site. This likely represents granulation tissue. There is partial opacification of the residual right mastoid air cells and left mastoid air cells. 2. There is soft tissue thickening along the buccal surface of the body and angle of the right mandible consistent with a phlegmon. Edema is present in the adjacent musculature. There is no mass effect on the billie- or hypopharynx. MICROBIOLOGY: Please see below. ASSESSMENT: . oral infection possibly abscess vs OM - ESR and CRP are very elevated PLAN: 1. s/p clinda 2. start vanc and zosyn 3. f/u blood cx 4. prn pain meds - avoid opiates, pt refused (ex ivdu) 5. ivf - monitor resp status 6. f/u MRI to r/o OM dvt ppx heparin Full code, from home, no svc Vital Signs Vital Signs Date Time Temp Pulse Resp B/P (MAP) Pulse Ox O2 Delivery O2 Flow Rate FiO2 07/06/18 12:31 99.3 111 20 162/77 (105) 96 Room Air Laboratory Data Labs 24H Laboratory Tests 2 07/06/18 12:48: Immature Granulocyte % (Auto) 0.8, White Blood Count 10.4H, Red Blood Count 3.58L, Hemoglobin 11.0L, Hematocrit 32.2L, Mean Corpuscular Volume 89.9, Mean Corpuscular Hemoglobin 30.7, Mean Corpuscular Hemoglobin Concent 34.2, Red Cell Distribution Width 13.2, Platelet Count 363, Neutrophils (%) (Auto) 76.4H, Lymphocytes (%) (Auto) 14.8L, Monocytes (%) (Auto) 6.9H, Eosinophils (%) (Auto) 0.9, Basophils (%) (Auto) 0.2, Neutrophils # (Auto) 8.0H, Lymphocytes # (Auto) 1.5, Monocytes # (Auto) 0.7, Eosinophils # (Auto) 0.1, Basophils # (Auto) 0.0, Nucleated Red Blood Cells % (auto) 0.0, Erythrocyte Sedimentation Rate 127H, Prothrombin Time 15.5H, Prothromb Time International Ratio 1.21, Anion Gap 10, Glomerular Filtration Rate > 60.0, Calcium Level 8.8, Aspartate Amino Transf (AST/SGOT) 41H, Alanine Aminotransferase (ALT/SGPT) 39, Alkaline Phosphatase 88, Total Bilirubin 0.3, Direct Bilirubin < 0.1, C-Reactive Protein, Quantitative 12.40H, Total Protein 6.3L, Albumin 3.1L, Albumin/Globulin Ratio 0.97L, Lipase 104 CBC/BMP Laboratory Tests 07/06/18 12:48 Red Blood Count 3.58 L, Mean Corpuscular Volume 89.9, Mean Corpuscular Hemoglobin 30.7, Mean Corpuscular Hemoglobin Concent 34.2, Red Cell Distribution Width 13.2, Neutrophils (%) (Auto) 76.4 H, Lymphocytes (%) (Auto) 14.8 L, Monocytes (%) (Auto) 6.9 H, Eosinophils (%) (Auto) 0.9, Basophils (%) (Auto) 0.2, Neutrophils # (Auto) 8.0 H, Lymphocytes # (Auto) 1.5, Monocytes # (Auto) 0.7, Eosinophils # (Auto) 0.1, Basophils # (Auto) 0.0 Microbiology Microbiology 07/06/18 Blood Culture, Received Pending Home Medications Scheduled (Lisinopril/Hydrochlorothi 20-12.5 mg) 1 Tab Tab, 1 TAB PO DAILY Amlodipine Besylate (Amlodipine Besylate) 10 Mg Tab, 10 MG PO DAILY Atorvastatin Calcium (Atorvastatin Calcium) 20 Mg Tab, 20 MG PO QHS Cholecalciferol (D2000 Ultra Strength) 2,000 Unit Cap, 2,000 UNIT PO DAILY Metoprolol Succinate (Metoprolol Succinate ER) 25 Mg Tab, 25 MG PO DAILY Mirtazapine (Mirtazapine) 15 Mg Tab, 15 MG PO QHS Modafinil (Modafinil) 200 Mg Tab, 400 MG PO DAILY Prazosin Hcl (Prazosin HCl) 5 Mg Cap, 5 MG PO DAILY Prazosin Hcl (Prazosin HCl) 2 Mg Cap, 2 MG PO QPM for nightmares Quetiapine Fumerate (Quetiapine Fumarate) 50 Mg Tab, 50 MG PO TID Venlafaxine Hydrochloride (Venlafaxine HCl) 75 Mg Tab, 75 MG PO DAILY Miscellaneous Medications [Patient Comments] PATIENT REQUESTS THAT HE NOT BE GIVEN ANY NARCOTICS Allergies Coded Allergies: No Known Drug Allergy (Verified Allergy, Unknown, 07/06/18) SUSAN WALL MD Jul 06, 2018 17:45
[2018-07-06] MEDS: NS 1,000 ML IV SCH (17:58)
[2018-07-06] MEDS: PRAZOSIN 1 MG CAP PO SCH (21:00)
[2018-07-06] MEDS: QUEtiapine FUMARATE 50 MG TAB PO SCH (21:00)
[2018-07-06] MEDS: MIRTAZAPINE 15 MG TAB PO SCH (21:00)
[2018-07-06] MEDS: ATORVASTATIN 20 MG TAB PO SCH (21:00)
[2018-07-06] MEDS: SENOKOT S TAB PO SCH (21:00)
--- NOTE | 2018-07-06 21:21 | ECGEPIP ---
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
[2018-07-06] MEDS: PIPERACILLIN/TAZOBACTAM SOD 3.375 GM in D5W MINI-BAG PLUS 50 ML IV SCH (21:27)
[2018-07-06] MEDS ORDERED: HEPARIN SOD (PORCINE) 5000 UNITS/ML VIAL SC SCH (22:00)
--- NOTE | 2018-07-06 22:18 | REPVR ---
EXAM: MR Neck Without Contrast EXAM DATE/TIME: 07/06/2018 5:31 PM CLINICAL HISTORY: 42 years old, male; Abnormal findings; Abnormal xray or scan of face; Prior surgery; Surgery date: 6+ months; Surgery type: Mastoid; Patient HX: PT removed a tooth 2 weeks ago, now with severe RT jaw pain. Abnormal CT done today. Limited exam, PT could not continue. ; Additional info: R/O om of the right jaw/oral cavity TECHNIQUE: MR images of the neck without intravenous contrast. COMPARISON: CT Neck with contrast 07/06/2018 2:11 PM FINDINGS: Oral Cavity: Abnormal soft tissue signal, T1 dark STIR weighted bright, demonstrated along the lateral aspect of the tongue extending laterally to the angle and body of the mandible measuring approximately 5.4 x 1.8 x 5 cm extending to almost 2 cm below the body of the mandible consistent with a phlegmon. The right masseter, myohyoid, and platysma muscles demonstrate enlargement and abnormal signal as well. Nasopharynx: Unremarkable. Oropharynx: Unremarkable. Hypopharynx: Unremarkable. Larynx: Unremarkable. Submandibular/Parotid glands: Unremarkable. Retropharyngeal space: Unremarkable. Mastoid air cells: Fluid signal demonstrated in both mastoid sinuses consistent with bilateral mastoiditis. Vasculature: Unremarkable. Lymph nodes: Abnormal lymph nodes are demonstrated adjacent to and inferior to the angle of the mandible measuring up to 14 mm, either inflammatory or infectious. Soft tissues: See Oral Cavity Finding. Bones/joints: Unremarkable. IMPRESSION: 1. Abnormal soft tissue signal demonstrated along the lateral aspect of the tongue extending laterally to the angle and body of the mandible measuring approximately 5.4 x 1.8 x 5 cm extending to almost 2 cm below the body of the mandible consistent with a phlegmon. The right masseter, myohyoid, and platysma muscles demonstrate enlargement and abnormal signal as well. 2. Abnormal lymph nodes are demonstrated adjacent to and inferior to the angle of the mandible measuring up to 14 mm, either inflammatory or infectious. 3. Fluid signal demonstrated in both mastoid sinuses consistent with bilateral mastoiditis. Electronically signed by: Francesco Srivastava On 07/06/2018 22:17:42 PM
[2018-07-07] VITALS (19 sets, daily range): BP systolic 130–187; BP diastolic 64–91
[2018-07-07] MEDS ORDERED: VANCOMYCIN HCL 1,000 MG, VIAL MATE ADAPTER 1 EACH in D5W 250 ML IV ONE ×4 (01:00)
[2018-07-07] MEDS ORDERED: NS 1,000 ML IV ONE ×2 (02:00→05:00)
[2018-07-07 02:08] LABS: HEMATOCRIT 26.9 % (42.0-52.0); HEMOGLOBIN 9.1 g/dl (13.5-17.5)
[2018-07-07] MEDS: PANTOPRAZOLE SODIUM 40 MG in D5W 50 ML IV SCH ×5 (02:15→22:01)
[2018-07-07] MEDS ORDERED: OCTREOTIDE ACETATE 1,200 MCG in NS 238.8 ML IV SCH (03:00)
[2018-07-07] MEDS: PIPERACILLIN/TAZOBACTAM SOD 3.375 GM in D5W MINI-BAG PLUS 50 ML IV SCH ×3 (03:00→17:21)
--- NOTE | 2018-07-07 04:37 | REPVR ---
EXAM: CT Abdomen and Pelvis Without Contrast EXAM DATE/TIME: 07/07/2018 2:30 AM CLINICAL HISTORY: 42 years old, male; Condition or disease; Other: Vomiting blood TECHNIQUE: Axial computed tomography images of the abdomen and pelvis without contrast. All CT scans at this facility use at least one of these dose optimization techniques: automated exposure control; mA and/or kV adjustment per patient size (includes targeted exams where dose is matched to clinical indication); or iterative reconstruction. Coronal and sagittal reformatted images were created and reviewed. COMPARISON: CT ABD/PEL W/IV CONTRAST ONLY 03/08/2017 12:22 PM FINDINGS: Lower thorax: Small hiatal hernia. ABDOMEN: Liver: Hepatomegaly with longitudinal diameter 19.5 CM. Gallbladder and bile ducts: Hyperdense sludge or vicarious excretion of contrast within the gallbladder. Pancreas: Normal. No ductal dilation. Spleen: Granulomatous calcifications within the spleen. Adrenals: Normal. No mass. Kidneys and ureters: Normal. No hydronephrosis. Stomach and bowel: Normal. No obstruction. No mucosal thickening. Appendix: No evidence of appendicitis. PELVIS: Bladder: Residual excreted contrast media within the bladder. Reproductive: Nonspecific stranding surrounding the seminal vesicles in the pelvis. ABDOMEN and PELVIS: Intraperitoneal space: Normal. No free air. No significant fluid collection. Bones/joints: No acute fracture. No dislocation. Soft tissues: Umbilical hernia containing fat. Vasculature: Normal. No abdominal aortic aneurysm. Lymph nodes: Small gastrohepatic ligament nodes measure less than 1 CM in size. IMPRESSION: 1. Multivitamin away. 2. Soft tissue stranding edema or inflammation surrounding the seminal vesicles and pelvis. Electronically signed by: Cely Velarde On 07/07/2018 04:36:51 AM
--- NOTE | 2018-07-07 04:51 | IPNPDOC ---
Text Note Date of Service The patient was seen on 07/07/18. NOTE I was called urgently to the ED to evaluate the patient for vomiting blood. When I arrived to the ED, that patient had vomited approximately 500 cc of bright red blood onto the floor. S: Patient states this has never happened before. He sued to be an alcoholic, but stopped drinking and using drugs about 4 years ago. He also stopped smoking 4 months ago. He has never had an upper or lower endoscopy. He has never vomited blood before. He denies melena, hematochezia, tenesmus, or diarrhea. He says that he has been constipated for a few days, but had a bowel movement earlier. He admits to some left upper quadrant abdominal pain, as well as pain around his umbilicus. O: VS HR 109, BP 176/87, 98% room air General: Anxious and male middle aged male in moderate distress. HEENT: Conjunctive and skin are pale, he has scabs and abrasions on his nose, cheeks, and chin. Lungs: CTA bilaterally, no wheezes, rhonchi or rales Heart: Tachycardic with a regular rate, no murmurs, gallops, or rubs Abdomen: Obese, protuberant but not distended. Hypoactive bowel sounds are present. He has an umbilical hernia that is reducible. He has pain to palpation of the periumbilical area, as well as severe pain to palpation of the LUQ. Extremities: Pale, capillary refill is difficult to appreciate due to patient's pallor. No lower extremity edema. LABS: Hgb 9.1, down from 11.0 (14 hours prior) A: 42 year old male admitted for phlegmon of the right mandible, who had one episode of vomiting about 500 cc blood in the ED, vitals signs notable for tachycardia. P: Transfer to ICU. Started on Protonix and Octreotide drips (concern for possible variceal bleeding), added IV fluids for volume repletion, type and crossed 4 units of blood, blood consent obtained, H&H q6h hours, stool occult for blood, CT ABD and Pelvis, NPO diet, consulted Dr. Carbajal of GI who will scope patient in the morning. Once he is stabilized and a source of bleeding has been found, may want to evaluate his liver function as coags showed a slightly elevated INR at 1.21. NOTE: UPON TRANSFER TO ICU, PATIENT HAD A LARGE BLACK LIQUID BOWEL MOVEMENT VS,Fishbone, I+O VS, Fishbone, I+O Laboratory Tests 07/06/18 12:48 Red Blood Count 3.58 L, Mean Corpuscular Volume 89.9, Mean Corpuscular Hemoglobin 30.7, Mean Corpuscular Hemoglobin Concent 34.2, Red Cell Distribution Width 13.2, Neutrophils (%) (Auto) 76.4 H, Lymphocytes (%) (Auto) 14.8 L, Monocytes (%) (Auto) 6.9 H, Eosinophils (%) (Auto) 0.9, Basophils (%) (Auto) 0.2, Neutrophils # (Auto) 8.0 H, Lymphocytes # (Auto) 1.5, Monocytes # (Auto) 0.7, Eosinophils # (Auto) 0.1, Basophils # (Auto) 0.0 07/07/18 02:03 Vital Signs Date Time Temp Pulse Resp B/P (MAP) Pulse Ox O2 Delivery O2 Flow Rate FiO2 07/07/18 03:49 96 97 07/07/18 03:48 97.9 20 168/82 (110) Nasal Cannula I&O- Last 24 Hours up to 6 AM 07/07/18 06:00 Intake Total 270 ml Balance 270 ml GME ATTESTATION GME ATTESTATION My faculty preceptor for this patient encounter was physically present during the encounter and was fully available. All aspects of the patient interview, examination, medical decision making process, and medical care plan development were reviewed and approved by the faculty preceptor. The faculty preceptor is aware and concurs with the plan as stated in the body of this note and will attest to such by his/her cosignature. ATTENDING NOTE Attestation: I have supervised the center medical specialist and discussed patients evaluation and medical management. I agree with the outlined management plan as documented in the residents note. MUSA GARCIA DO Jul 07, 2018 04:51 ELIJAH MARES MD Jul 07, 2018 06:56
[2018-07-07 05:03] LABS: BASO % 0.2 % (0.0-1.0); EOS # 0.1 10^3/uL (0.0-0.50); EOS % 0.5 % (0.0-3.0); HEMATOCRIT 22.2 % (42.0-52.0); HEMOGLOBIN 7.5 g/dl (13.5-17.5); LYMPH # 1.9 10^3/uL (1.5-4.5); LYMPH % 11.3 % (24.0-44.0); MEAN CORPUSCULAR HEMOGLOBIN 30.6 pg (27.0-33.0); MEAN CORPUSCULAR HGB CONC 33.8 g/dl (32.0-36.5); MEAN CORPUSCULAR VOLUME 90.6 fl (80.0-96.0); MONO # 1.8 10^3/uL (0.0-0.8); MONO % 10.6 % (0.0-5.0); NEUTROPHILS # 12.5 10^3/uL (1.8-7.7); NEUTROPHILS % 75.1 % (36.0-66.0); PLATELET COUNT, AUTOMATED 389 10^3/uL (150-450); RED BLOOD COUNT 2.45 10^6/uL (4.30-6.10); WHITE BLOOD COUNT 16.6 10^3/uL (4.0-10.0)
[2018-07-07] MEDS: NS 1,000 ML IV SCH (05:06)
--- NOTE | 2018-07-07 05:07 | PHACANCOPD ---
PHARMACY VANCOMYCIN DOSING Pt Demographics Demographics Patient Age:42 , Weight:111.360 , Gender: male Adjusted Body Weight Date: 07/07/18, Adjusted Body Weight: [84.2] Kg Vancomycin Vancomycin indication: ORAL ABCESS Vancomycin Target Ranges: 15-20 mcg/ml Vancomycin Load Y/N: Yes Load Dose Date Time Vancomycin Load Dose: 2GM Date: 07/07 Time:00-2AM Vancomycin Dose Date: 07/07/18. Current Vancomycin Dose: [1GM Q8H] Intermittent Dosing?: No Labs Labs Laboratory Tests 07/06/18 12:48 Red Blood Count 3.58 L, Mean Corpuscular Volume 89.9, Mean Corpuscular Hemoglobin 30.7, Mean Corpuscular Hemoglobin Concent 34.2, Red Cell Distribution Width 13.2, Neutrophils (%) (Auto) 76.4 H, Lymphocytes (%) (Auto) 14.8 L, Monocytes (%) (Auto) 6.9 H, Eosinophils (%) (Auto) 0.9, Basophils (%) (Auto) 0.2, Neutrophils # (Auto) 8.0 H, Lymphocytes # (Auto) 1.5, Monocytes # (Auto) 0.7, Eosinophils # (Auto) 0.1, Basophils # (Auto) 0.0 07/07/18 02:03 Micro Microbiology 07/06/18 Blood Culture, Received Pending 07/07/18 Stool Occult Blood (HERNESTO), Received Pending Creatinine Clearance Date:07/07/18. Creatinine Clearance: [>100]. Pending Labs Vancomycin trough due 07/08@99 Assessment and Plan Maintaining Current Dose?: Yes Reason for dose change: No Dose Change Pharmacist Note Pharmacist Note Date: 07/07/18. Pharmacist note:oral abcess treated- abx treatment includes Pip/Tazo 3.375 gm q8h and Vancomycin per Pharmacy consult.Vanco load of 2 grams administered 07/07 from 12mid-199. then will begin a regimen of Vancomycin 1 grsm [id number].trough is scheduled for07/08@0100-will continue to follow [facility] Jul 07, 2018 05:07
[2018-07-07] MEDS ORDERED: MORPHINE 4 MG/ML 1ML VIAL/SYRINGE (J2270) IV ONE (05:15)
[2018-07-07 05:23] LABS: BLOOD UREA NITROGEN 38 MG/DL (7-18); CALCIUM LEVEL 7.9 MG/DL (8.5-10.1); CARBON DIOXIDE LEVEL 24 MEQ/L (21-32); CHLORIDE LEVEL 103 MEQ/L (98-107); CREATININE FOR GFR 0.87 MG/DL (0.70-1.30); GLOMERULAR FILTRATION RATE > 60.0 (>60); GLUCOSE, FASTING 141 MG/DL (70-100); MAGNESIUM LEVEL 1.7 MG/DL (1.8-2.4); POTASSIUM SERUM 4.7 MEQ/L (3.5-5.1); SODIUM LEVEL 135 MEQ/L (136-145)
[2018-07-07] MEDS: MAGIC MOUTHWASH SUSPENSION BTL SS PRN ×3 (06:00→20:34)
[2018-07-07] MEDS: PRAZOSIN 1 MG CAP PO SCH ×2 (07:52→20:34)
[2018-07-07] MEDS: ONDANSETRON 4MG/2ML VIAL (J2405) IV PRN ×2 (08:20→11:40)
[2018-07-07] MEDS: MORPHINE 4 MG/ML 1ML VIAL/SYRINGE (J2270) IV PRN ×2 (08:21→14:18)
[2018-07-07] MEDS: MODAFINIL 200MG TABLET PO SCH (08:44)
[2018-07-07] MEDS: VENLAFAXINE 37.5 MG TAB PO SCH (08:44)
[2018-07-07] MEDS: amLODIPine 10 MG TAB PO SCH (08:44)
[2018-07-07] MEDS: SENOKOT S TAB PO SCH ×2 (08:44→20:35)
[2018-07-07] MEDS: QUEtiapine FUMARATE 50 MG TAB PO SCH ×3 (08:45→22:01)
[2018-07-07] MEDS ORDERED: LIDOCAINE 2% INJ 100 MG/5 ML SDV (FOR ANES.) As Ordered ONE (09:00)
[2018-07-07] MEDS ORDERED: METOPROLOL SUCC *XL* 25MG TAB (TopROL *XL*) PO SCH (09:00)
[2018-07-07] MEDS ORDERED: VITAMIN D 1,000 INTERNATIONAL UNITS TABLET PO SCH (09:00)
[2018-07-07] MEDS ORDERED: ROCURONIUM BROMIDE 50 MG/5 ML VIAL As Ordered ONE (09:00)
[2018-07-07] MEDS ORDERED: fentaNYL 250 MCG/5 ML INJECTION (J3010) As Ordered ONE (09:01)
[2018-07-07] MEDS ORDERED: MIDAZOLAM INJ 2 MG/2 ML VIAL (J2250) As Ordered ONE (09:01)
[2018-07-07] MEDS ORDERED: LIDOCAINE W/EPINEPHRINE 1% 20ML VIAL As Ordered ONE (09:24)
[2018-07-07] MEDS ORDERED: OXYMETAZOLINE NASAL SPRAY (AFRIN) As Ordered ONE (09:47)
--- NOTE | 2018-07-07 09:49 | NUR ---
OMFS Consult Note Patient with swelling and pain on lower right mandible. Physical examination and CT showed a phlegmon in the right mandible. Patient schedule for incision and drainage of right mandible Darío Harrington DMD
[2018-07-07] MEDS ORDERED: VANCOMYCIN 1000 MG/20 ML VIAL (J3370) As Ordered ONE (09:50)
[2018-07-07] MEDS: VANCOMYCIN HCL 1,000 MG, VIAL MATE ADAPTER 1 EACH in D5W 250 ML IV SCH ×2 (10:00→17:22)
[2018-07-07] MEDS ORDERED: LABETALOL HCL 100 MG/20 ML VIAL As Ordered ONE (10:45)
[2018-07-07] MEDS ORDERED: ESMOLOL INJ 100MG/10ML VIAL As Ordered ONE (10:45)
[2018-07-07 10:47] LABS: HEMATOCRIT 25.4 % (42.0-52.0); HEMOGLOBIN 8.7 g/dl (13.5-17.5)
[2018-07-07] MEDS ORDERED: ONDANSETRON 4MG/2ML VIAL (J2405) As Ordered ONE ×2 (10:51→11:38)
[2018-07-07] MEDS ORDERED: KETOROLAC 60 MG/2 ML VIAL (J1885) As Ordered ONE (10:51)
[2018-07-07] MEDS ORDERED: SUGAMMADEX SODIUM 500 MG/5 ML VIAL (BRIDION) As Ordered ONE (10:51)
[2018-07-07] MEDS ORDERED: dexameTHASONE 4 MG/ML 1ML VIAL (J1100) As Ordered ONE (10:51)
--- NOTE | 2018-07-07 10:57 | ROOR ---
Patient Name: Jackson Moran Procedure Date: 07/07/2018 9:27 AM Date of : 1975 Age: 42 Gender: Male Note Status: Finalized Procedure: Upper GI endoscopy Indications: Hematemesis, Active gastrointestinal bleeding Providers: Daniel Carbajal MD Referring MD: 1. No Referring Physician 1. No Referring Physician, Admin. Requesting Provider: Medicines: General Anesthesia Complications: No immediate complications. Procedure: Pre-Anesthesia Assessment: - The heart rate, respiratory rate, oxygen saturations, blood pressure, adequacy of pulmonary ventilation, and response to care were monitored throughout the procedure. The Endoscope was introduced through the mouth, and advanced to the second part of duodenum. The upper GI endoscopy was accomplished without difficulty. The patient tolerated the procedure well. Findings: The Z-line was regular and was found 35 cm from the incisors. Clotted blood was found in the cardia. Localized moderate inflammation characterized by congestion (edema), erosions, erythema, granularity, aphthous ulcerations and shallow ulcerations was found in the gastric antrum. The exam of the duodenum was otherwise normal. Impression: - Z-line regular, 35 cm from the incisors. - Clotted blood in the cardia. - Mucosal changes suspicious for gastritis. - No specimens collected. - The examination was otherwise normal. Recommendation: - Patient has a contact number available for emergencies. The signs and symptoms of potential delayed complications were discussed with the patient. Return to normal activities tomorrow. Written discharge instructions were provided to the patient. - Continue present medications. - Return to referring physician. - [facility] patient to [facility]. - The findings and recommendations were discussed with the referring physician. Daniel Carbajal MD Daniel Carbajal MD 07/07/2018 10:57:05 AM This report has been signed electronically. Number of Addenda: 0 Note Initiated On: 07/07/2018 9:27 AM Estimated Blood Loss: Estimated blood loss: none.
[2018-07-07] MEDS ORDERED: NORCO, ANEXSIA 5/325MG TABLET (HYDROcodone/ACETAMINOPHEN) PO PRN (11:30)
[2018-07-07] MEDS ORDERED: ONDANSETRON 4MG/2ML VIAL (J2405) IV PRN (11:30)
[2018-07-07] MEDS ORDERED: LR 1,000 ML IV SCH (11:30)
[2018-07-07] MEDS ORDERED: MAG SULF 1GM/100ML (MAG RUN) 1 GM in APPROPRIATE DILUENT 1 EA IV ONE (11:45)
[2018-07-07] MEDS ORDERED: fentaNYL 100 MCG/2 ML INJECTION (J3010) As Ordered ONE (11:49)
[2018-07-07] MEDS ORDERED: NORCO, ANEXSIA 5/325MG TABLET (HYDROcodone/ACETAMINOPHEN) As Ordered ONE (11:49)
--- NOTE | 2018-07-07 11:49 | IPNPDOC ---
Date Seen The patient was seen on 07/07/18. Progress Note SUBJECTIVE: Patient complains of pain in his right mouth, it is better than yesterday he also complains of pain in the belly he denies any changes in this. He tells me he is continued to have bloody bowel movements since yesterday evening OBJECTIVE PHYSICAL EXAMINATION: VITAL SIGNS: Please see below. GENERAL: Obese disheveled man middle-age appears uncomfortable but in no acute distress HEENT: Cranial nerves appear grossly intact exquisite tenderness to palpation of the right mandibular region significant swelling and edema and erythema to the right when the area no obvious discharge on the anterior aspect of the mouth bilaterally but obvious swelling and discoloration. Numerous abrasions to the right side of his face CARDIOVASCULAR: S1-S2 he is mildly tachycardic noticed heart sounds appreciated at his regular. RESPIRATORY: Clear to auscultation bilaterally. ABDOMINAL: Obese diffusely tender to palpation diminished bowel sounds EXTREMITIES: Numerous tattoos and piercings LABORATORY DATA, IMAGING STUDIES, MICROBIOLOGY: Please see below. DVT prophylaxis ordered?: Sequentials teds no pharmacological agents secondary to active bleeding ASSESSMENT AND PLAN: This is a 42-year-old man with right mandibular phlegmon/abscess and GI bleed. PROBLEMS: 1.. GI bleed: I did speak with Dr. Carbajal was wearing the plan is for upper endoscopy today as soon as able. For the time being he is on Protonix octreotide IV fluids nothing by mouth. He's been transfuse 1 unit PRBCs and reportedly received a second unit Will continue to monitor his hemoglobin and hematocrit closely he'll remain in the medical intensive care unit. When necessary IV Zofran. 2. Mandibular phlegmon/abscess]: Exquisite pain is improved I suspect she'll continue to improve with antibiotics but Dr. Lopez oral surgery see if he is able to do an I&D possibly the same time as endoscopy is complete noted in previous the patient's range of motion of the jaw and he is scoping procedure. The patient reportedly had some trauma to the area recently he is continued on empiric Zosyn and vancomycin. Blood cultures have been drawn. When necessary IV morphine 3. Hypomagnesemia: we'll replete IV 4. Hypertension: We'll hold his Norvasc for now he is having active bleeding, hold prazosin. Hold lisinopril and metoprolol and hydrochlorothiazide as well. 5. Psychiatric condition continue with venlafaxine Remeron Seroquel modafinil when he is able to take by mouth 6. History of substance abuse: He has been alcohol free and IV drug free for years 7. Tobacco use: cessation counseling provided DISPOSITION: [Prognosis is guarded and continue to monitor closely in the medical intensive care unit VS, I&O, 24H, Fishbone Vital Signs/I&O Vital Signs Date Time Temp Pulse Resp B/P (MAP) Pulse Ox O2 Delivery O2 Flow Rate FiO2 07/07/18 09:15 97.0 101 20 144/64 (90) 96 2.0 07/07/18 03:48 Nasal Cannula I&O- Last 24 Hours up to 6 AM 07/07/18 06:00 Intake Total 270 ml Output Total 0 ml Balance 270 ml Laboratory Data 24H LABS Laboratory Tests 2 07/06/18 12:48: Immature Granulocyte % (Auto) 0.8, White Blood Count 10.4H, Red Blood Count 3.58L, Hemoglobin 11.0L, Hematocrit 32.2L, Mean Corpuscular Volume 89.9, Mean Corpuscular Hemoglobin 30.7, Mean Corpuscular Hemoglobin Concent 34.2, Red Cell Distribution Width 13.2, Platelet Count 363, Neutrophils (%) (Auto) 76.4H, Lymphocytes (%) (Auto) 14.8L, Monocytes (%) (Auto) 6.9H, Eosinophils (%) (Auto) 0.9, Basophils (%) (Auto) 0.2, Neutrophils # (Auto) 8.0H, Lymphocytes # (Auto) 1.5, Monocytes # (Auto) 0.7, Eosinophils # (Auto) 0.1, Basophils # (Auto) 0.0, Nucleated Red Blood Cells % (auto) 0.0, Erythrocyte Sedimentation Rate 127H, Prothrombin Time 15.5H, Prothromb Time International Ratio 1.21, Anion Gap 10, Glomerular Filtration Rate > 60.0, Calcium Level 8.8, Aspartate Amino Transf ( AST/SGOT) 41H, Alanine Aminotransferase (ALT/SGPT) 39, Alkaline Phosphatase 88, Total Bilirubin 0.3, Direct Bilirubin < 0.1, C-Reactive Protein, Quantitative 12.40H, Total Protein 6.3L, Albumin 3.1L, Albumin/Globulin Ratio 0.97L, Lipase 104 07/07/18 04:19: Bedside Glucose (Misc Panel) 138H 07/07/18 04:45: Immature Granulocyte % (Auto) 2.3, White Blood Count 16.6H, Red Blood Count 2.45L, Hemoglobin 7.5L, Hematocrit 22.2L, Mean Corpuscular Volume 90.6, Mean C orpuscular Hemoglobin 30.6, Mean Corpuscular Hemoglobin Concent 33.8, Red Cell Distribution Width 13.3, Platelet Count 389, Neutrophils (%) (Auto) 75.1H, Lymphocytes (%) (Auto) 11.3L, Monocytes (%) (Auto) 10.6H, Eosinophils (%) (Auto) 0.5, Basophils (%) (Auto) 0.2, Neutrophils # (Auto) 12.5H, Lymphocytes # (Auto) 1.9, Monocytes # (Auto) 1.8H, Eosinophils # (Auto) 0.1, Basophils # (Auto) 0.0, Nucleated Red Blood Cells % (auto) 0.0, Anion Gap 8, Glomerular Filtration Rate > 60.0, Calcium Level 7.9L, Blood Urea Nitrogen 38H, Creatinine 0.87, Sodium Level 135L, Potassium Level 4.7, Chloride Level 103, Carbon Dioxide Level 24, Magnesium Level 1.7L CBC/BMP Laboratory Tests 07/06/18 12:48 Red Blood Count 3.58 L, Mean Corpuscular Volume 89.9, Mean Corpuscular Hemoglobin 30.7, Mean Corpuscular Hemoglobin Concent 34.2, Red Cell Distribution Width 13.2, Neutrophils (%) (Auto) 76.4 H, Lymphocytes (%) (Auto) 14.8 L, Monocytes (%) (Auto) 6.9 H, Eosinophils (%) (Auto) 0.9, Basophils (%) (Auto) 0.2, Neutrophils # (Auto) 8.0 H, Lymphocytes # (Auto) 1.5, Monocytes # (Auto) 0.7, Eosinophils # (Auto) 0.1, Basophils # (Auto) 0.0 07/07/18 02:03 07/07/18 04:45 Red Blood Count 2.45 L, Mean Corpuscular Volume 90.6, Mean Corpuscular Hemoglobin 30.6, Mean Corpuscular Hemoglobin Concent 33.8, Red Cell Distribution Width 13.3, Neutrophils (%) (Auto) 75.1 H, Lymphocytes (%) (Auto) 11.3 L, Monocytes (%) (Auto) 10.6 H, Eosinophils (%) (Auto) 0.5, Basophils (%) (Auto) 0.2, Neutrophils # (Auto) 12.5 H, Lymphocytes # (Auto) 1.9, Monocytes # (Auto) 1.8 H, Eosinophils # (Auto) 0.1, Basophils # (Auto) 0.0, Calcium Level 7.9 L 07/07/18 10:07 Microbiology Microbiology 07/07/18 Blood Culture, Received Pending 07/06/18 Blood Culture, Received Pending 07/07/18 Stool Occult Blood (HERNESTO) - Final, Complete YAZMIN SORIANO MD Jul 07, 2018 11:49
[2018-07-07] MEDS: fentaNYL 100 MCG/2 ML INJECTION (J3010) IV PRN ×4 (11:50→12:05)
[2018-07-07] MEDS: SUCRALFATE 1 GM TAB PO SCH ×3 (12:39→23:06)
[2018-07-07 14:43] LABS: HEMATOCRIT 25.4 % (42.0-52.0); HEMOGLOBIN 8.7 g/dl (13.5-17.5)
[2018-07-07] MEDS: ACETAMINOPHEN TAB 650MG DOSE (2X325MG) PO PRN ×2 (14:50→23:06)
--- NOTE | 2018-07-07 17:03 | RO ---
DATE OF PROCEDURE: 07/07/2018 PREPROCEDURE DIAGNOSIS: Right mandibular abscess. POSTPROCEDURE DIAGNOSIS: Right mandibular abscess. OPERATIVE PROCEDURE: Excision and drainage of right mandibular abscess. SURGEON: Darío Harrington DMD REVIEW MANAGER: ANESTHESIA: General. COMPLICATIONS: None. ESTIMATED BLOOD LOSS: 10 mL SPECIMENS: None. DESCRIPTION OF PROCEDURE: The rest of this dictation will be completed on [employer].
[2018-07-07 20:10] LABS: HEMATOCRIT 21.5 % (42.0-52.0); HEMOGLOBIN 7.6 g/dl (13.5-17.5)
[2018-07-07] MEDS: MIRTAZAPINE 15 MG TAB PO SCH (20:33)
[2018-07-07] MEDS: CHLORHEXIDINE GLUCONATE 0.12 % 15ML UDC (PERIDEX ORAL RINSE) MT SCH (20:33)
[2018-07-07] MEDS: ATORVASTATIN 20 MG TAB PO SCH (20:34)
[2018-07-08] VITALS (16 sets, daily range): BP systolic 147–197; BP diastolic 69–98
[2018-07-08] MEDS: MORPHINE 4 MG/ML 1ML VIAL/SYRINGE (J2270) IV PRN ×3 (01:51→11:39)
[2018-07-08] MEDS: MAGIC MOUTHWASH SUSPENSION BTL SS PRN ×4 (01:51→23:39)
[2018-07-08] MEDS: PIPERACILLIN/TAZOBACTAM SOD 3.375 GM in D5W MINI-BAG PLUS 50 ML IV SCH ×2 (03:42→11:37)
[2018-07-08] MEDS: PANTOPRAZOLE SODIUM 40 MG in D5W 50 ML IV SCH ×2 (03:42→08:00)
[2018-07-08 04:49] LABS: HEMATOCRIT 26.8 % (42.0-52.0); HEMOGLOBIN 9.4 g/dl (13.5-17.5); MEAN CORPUSCULAR HEMOGLOBIN 31.9 pg (27.0-33.0); MEAN CORPUSCULAR HGB CONC 35.1 g/dl (32.0-36.5); MEAN CORPUSCULAR VOLUME 90.8 fl (80.0-96.0); PLATELET COUNT, AUTOMATED 308 10^3/uL (150-450); RED BLOOD COUNT 2.95 10^6/uL (4.30-6.10); WHITE BLOOD COUNT 13.9 10^3/uL (4.0-10.0)
[2018-07-08 05:10] LABS: BLOOD UREA NITROGEN 19 MG/DL (7-18); CALCIUM LEVEL 7.3 MG/DL (8.5-10.1); CARBON DIOXIDE LEVEL 27 MEQ/L (21-32); CHLORIDE LEVEL 103 MEQ/L (98-107); CREATININE FOR GFR 0.83 MG/DL (0.70-1.30); GLOMERULAR FILTRATION RATE > 60.0 (>60); GLUCOSE, FASTING 123 MG/DL (70-100); MAGNESIUM LEVEL 2.1 MG/DL (1.8-2.4); POTASSIUM SERUM 4.1 MEQ/L (3.5-5.1); SODIUM LEVEL 136 MEQ/L (136-145)
[2018-07-08] MEDS: VANCOMYCIN HCL 1,000 MG, VIAL MATE ADAPTER 1 EACH in D5W 250 ML IV SCH ×2 (05:16→09:17)
[2018-07-08 05:17] LABS: EOSINOPHILS 1 % (0-5); LYMPHOCYTES 26 % (16-52); MONOCYTES 6 % (0-8); NEUTROPHILS 65 % (35-75)
[2018-07-08] MEDS: SUCRALFATE 1 GM TAB PO SCH ×4 (05:18→20:19)
[2018-07-08 05:19] LABS: ANISOCYTOSIS 1+; PLATELET ESTIMATE NORMAL (NORMAL)
[2018-07-08] MEDS: CHLORHEXIDINE GLUCONATE 0.12 % 15ML UDC (PERIDEX ORAL RINSE) MT SCH ×2 (08:01→20:18)
[2018-07-08] MEDS: PRAZOSIN 1 MG CAP PO SCH ×2 (08:02→20:21)
[2018-07-08] MEDS: QUEtiapine FUMARATE 50 MG TAB PO SCH ×3 (08:02→20:19)
[2018-07-08] MEDS: VENLAFAXINE 37.5 MG TAB PO SCH (08:03)
[2018-07-08] MEDS: ACETAMINOPHEN TAB 650MG DOSE (2X325MG) PO PRN (08:03)
[2018-07-08] MEDS: amLODIPine 10 MG TAB PO SCH (08:03)
[2018-07-08] MEDS: SENOKOT S TAB PO SCH ×2 (08:03→20:20)
[2018-07-08] MEDS: MODAFINIL 200MG TABLET PO SCH (08:09)
[2018-07-08] MEDS ORDERED: GEMF600T5 PO (10:42)
[2018-07-08] MEDS ORDERED: FISH7.5C PO (10:42)
[2018-07-08] MEDS ORDERED: VENL150C43 PO (10:42)
--- NOTE | 2018-07-08 13:00 | IPNPDOC ---
Date Seen The patient was seen on 07/08/18. Progress Note SUBJECTIVE: Patient tells me that he is feeling much better, he has much less pain in his mouth with her still some present time and that he still is having some dark stools but is much improved and his pain is under control. OBJECTIVE PHYSICAL EXAMINATION: VITAL SIGNS: Please see below. GENERAL: Obese disheveled man middle-age sitting up in bed appears more comfortable today speaking in complete sentences he is awake alert oriented 3 HEENT: Cranial nerves appear grossly intact reduced tenderness to palpation of the right mandibular region significant swelling and edema to the right side of his face but certainly improved she has improved range of motion of the jaw. Numerous abrasions to the right side of his face CARDIOVASCULAR: S1-S2 regular RESPIRATORY: Clear to auscultation bilaterally. ABDOMINAL: Obese bowel sounds are present mild epigastric tenderness to deep palpation EXTREMITIES: Numerous tattoos and piercings LABORATORY DATA, IMAGING STUDIES, MICROBIOLOGY: Please see below. DVT prophylaxis ordered?: Sequentials teds no pharmacological agents secondary to active bleeding ASSESSMENT AND PLAN: This is a 42-year-old man with right mandibular phlegmon/abscess and GI bleed. PROBLEMS: 1. Acute blood loss anemia secondary to GI bleed secondary to NSAID-induced gastritis: The patient admits to me today he was taking significant naproxen to treat his oral pain Dr. Carbajal. Did see multiple gastric ulcers we suspect that this is secondary to excessive naproxen is advised her against using any NSAIDs we will continue him on Protonix and Carafate given that he has lost IV access and is a poor access secondary to history of IV drug abuse O times transition him to by mouth medications and monitor his hemoglobin closely he's been advanced to full liquid type Dr. Carbajal. 2. Right Mandibular phlegmon/abscess: Dr. Lopez did taken to the operating room yesterday he visualized the area and stated that it was no drainable collection but that bone was exposed. Telemetry that he in the past had shrapnel in his right mandible and has had it removed but had reconstructive surgery there tells me that he get a bone spur and gout which he removed in the days prior to his infection developing in that region. He tells me [facility] And that he would like to have dental follow-up with him in the outpatient setting and he was being fitted for dentures. At this time I'll transition him to by mouth clindamycin discontinue his tobacco Zosyn his cultures are negative at this time strep and staph are the most concerning organisms there was abscess formation on previous imaging. I'll transition him to by mouth pain medication as well he does appear improved at this time 3. Hypomagnesemia: Resolved with repletion 4. Hypertension: We will resume his Norvasc prazosin he may require his lisinopril and metoprolol as well as hydrochlorothiazide will restart as needed 5. Psychiatric condition continue with venlafaxine Remeron Seroquel modafinil. 6. History of substance abuse: He has been alcohol free and IV drug free for 4 years 7. Tobacco use: cessation counseling provided 8. Hypovolemic hyponatremia: Resolved DISPOSITION: Pending stabilization of his hemoglobin will transfer to [facility] VS, I&O, 24H, [facility] Vital Signs/I&O Vital Signs Date Time Temp Pulse Resp B/P (MAP) Pulse Ox O2 Delivery O2 Flow Rate FiO2 07/08/18 12:00 97.5 87 16 147/75 (99) 97 07/07/18 16:00 2.0 07/07/18 12:05 Room Air I&O- Last 24 Hours up to 6 AM 07/08/18 06:00 Intake Total 3950 ml Output Total 2150 ml Balance 1800 ml Laboratory Data 24H LABS Laboratory Tests 2 07/08/18 04:12: Immature Granulocyte % (Auto) , Nucleated Red Blood Cells % (auto) 0.5H, Neutr ophils 65, Band Neutrophils 2, Lymphocytes (Manual) 26, Monocytes (Manual) 6, Eosinophils (Manual) 1, Platelet Estimate NORMAL, Anisocytosis 1+, Anion Gap 6L, Glomerular Filtration Rate > 60.0, Blood Urea Nitrogen 19H, Creatinine 0.83, Sodium Level 136, Potassium Level 4.1, Chloride Level 103, Carbon Dioxide Level 27, Calcium Level 7.3L, Magnesium Level 2.1, Vancomycin Level Trough 5.7L CBC/BMP Laboratory Tests 07/07/18 14:26 07/07/18 20:00 07/08/18 04:12 Red Blood Count 2.95 L, Mean Corpuscular Volume 90.8, Mean Corpuscular Hemoglobin 31.9, Mean Corpuscular Hemoglobin Concent 35.1, Red Cell Distribution Width 13.4, Calcium Level 7.3 L Microbiology Microbiology 07/07/18 Blood Culture - Preliminary, Resulted No growth after 24 hours . All specim... 07/06/18 Blood Culture - Preliminary, Resulted No growth after 24 hours . All specim... 07/07/18 Stool Occult Blood (HERNESTO) - Final, Complete YAZMIN SORIANO MD Jul 08, 2018 13:00
[2018-07-08] MEDS: ACETAMINOPHEN TAB 650MG DOSE (2X325MG) PO SCH ×3 (13:32→23:39)
[2018-07-08] MEDS: PANTOPRAZOLE 40MG TAB (PROTONIX) PO SCH ×2 (13:32→20:19)
[2018-07-08] MEDS: CLINDAMYCIN 150 MG CAP PO SCH ×3 (15:16→23:38)
[2018-07-08] MEDS: oxyCODONE 5MG TAB PO PRN ×2 (15:27→20:20)
[2018-07-08 18:22] LABS: HEMATOCRIT 24.7 % (42.0-52.0); HEMOGLOBIN 8.6 g/dl (13.5-17.5)
[2018-07-08] MEDS: ATORVASTATIN 20 MG TAB PO SCH (20:20)
[2018-07-08] MEDS: MIRTAZAPINE 15 MG TAB PO SCH (20:20)
--- NOTE | 2018-07-08 21:25 | CR ---
DATE OF CONSULTATION: 07/07/2018 This is a 42-year-old white male who presents to the emergency room with severe right jaw pain. The patient apparently had a molar, which several weeks ago he was able to remove by himself. He presents now with severe 8/10 pain and swelling of his mandible. He has not been able to eat for approximately 4 days. He has no fevers, night sweats, shaking chills. The patient apparently in the emergency room had a single bout of hematemesis. No complaints of abdominal pain. No previous history of ulcer disease. PAST MEDICAL HISTORY: 1. Migraines. 2. Depression. 3. Chronic back pain with herniated disc. 4. He has posttraumatic stress disorder (PTSD). 5. Polysubstance abuse, including apparently intravenous (IV) heroin and cocaine. Patient states he has not abused in 4 years. FAMILY HISTORY: Positive lymphoma. SOCIAL HISTORY: Cigarettes. The patient supposedly smokes only five cigarettes a day. He has had previous overdoses on Suboxone and Zoloft and has previously used crystal methamphetamine, heroin, and methadone. Alcohol: Denies. IV drug abuse: Previous abuser. Positive tattoos placed unprofessionally. PAST SURGICAL HISTORY 1. Right cochlear implant. 2. Tonsillectomy. FAMILY HISTORY: Noncontributory to the above problem. GENERAL: He is a well-developed, slightly obese white male in no obvious acute distress. Appears his stated age. CHEST: Clear to auscultation. CARDIOVASCULAR: Showed a regular rate and rhythm. No murmurs or gallops. Normal physiological split, S1, S2. ABDOMEN: Soft, nontender. No masses, guarding, rebound, hepatosplenomegaly. Bowel sounds positive. Laboratory studies on admission showed a white count 10,400, hemoglobin and hematocrit 11 and 32.2. Patient is down to 7.5 and 22.2. He has been given 2 units of packed red blood cell. IMAGING STUDIES: On admission showed an abdominal CT on 07/07/2018, which was essentially noncontributory. MRI of the face was essentially unremarkable except for a swelling on the lateral aspect of the tongue extending laterally to the angle and body of the mandible. IMPRESSION: 1. Abnormal soft tissue density signal on the tongue and mandible. ANALYSIS: Upper gastrointestinal (GI) bleed, possibly secondary to ulcer disease. PLAN: Perform upper endoscopy in conjunction with the help of oral surgery to be decompress the patient's abscess.
[2018-07-09] MEDS: oxyCODONE 5MG TAB PO PRN ×4 (05:08→20:53)
[2018-07-09] MEDS: ACETAMINOPHEN TAB 650MG DOSE (2X325MG) PO SCH ×3 (05:08→17:57)
[2018-07-09] MEDS: CLINDAMYCIN 150 MG CAP PO SCH ×3 (05:08→17:56)
[2018-07-09 06:00] VITALS: BP 165/83
[2018-07-09 06:23] LABS: HEMATOCRIT 24.3 % (42.0-52.0); HEMOGLOBIN 8.2 g/dl (13.5-17.5); MEAN CORPUSCULAR HEMOGLOBIN 31.5 pg (27.0-33.0); MEAN CORPUSCULAR HGB CONC 33.7 g/dl (32.0-36.5); MEAN CORPUSCULAR VOLUME 93.5 fl (80.0-96.0); PLATELET COUNT, AUTOMATED 301 10^3/uL (150-450); WHITE BLOOD COUNT 9.2 10^3/uL (4.0-10.0)
[2018-07-09 06:45] LABS: BLOOD UREA NITROGEN 9 MG/DL (7-18); CALCIUM LEVEL 7.8 MG/DL (8.5-10.1); CARBON DIOXIDE LEVEL 31 MEQ/L (21-32); CHLORIDE LEVEL 103 MEQ/L (98-107); CREATININE FOR GFR 0.73 MG/DL (0.70-1.30); GLOMERULAR FILTRATION RATE > 60.0 (>60); GLUCOSE, FASTING 103 MG/DL (70-100); POTASSIUM SERUM 3.5 MEQ/L (3.5-5.1); SODIUM LEVEL 139 MEQ/L (136-145)
[2018-07-09 07:20] LABS: BASOPHILS 1 % (0-4); EOSINOPHILS 3 % (0-5); LYMPHOCYTES 31 % (16-52); METAMYELOCYTES 4 % (0-0); MONOCYTES 5 % (0-8); MYELOCYTES 6 % (0-0); NEUTROPHILS 47 % (35-75)
[2018-07-09 07:21] LABS: PLATELET ESTIMATE NORMAL (NORMAL)
[2018-07-09 07:22] LABS: ANISOCYTOSIS 1+
[2018-07-09] MEDS: SUCRALFATE 1 GM TAB PO SCH ×4 (08:08→20:50)
[2018-07-09] MEDS: QUEtiapine FUMARATE 50 MG TAB PO SCH ×3 (09:23→20:51)
[2018-07-09] MEDS: PANTOPRAZOLE 40MG TAB (PROTONIX) PO SCH ×2 (09:25→20:50)
[2018-07-09] MEDS: VENLAFAXINE **XR** 75MG CAPSULE PO SCH (09:25)
[2018-07-09] MEDS: SENOKOT S TAB PO SCH ×2 (09:30→20:53)
[2018-07-09] MEDS: amLODIPine 10 MG TAB PO SCH (09:30)
[2018-07-09] MEDS: CHLORHEXIDINE GLUCONATE 0.12 % 15ML UDC (PERIDEX ORAL RINSE) MT SCH ×2 (09:31→22:52)
[2018-07-09] MEDS: MODAFINIL 200MG TABLET PO SCH (10:35)
[2018-07-09] MEDS: MAGIC MOUTHWASH SUSPENSION BTL SS PRN ×3 (10:35→19:54)
--- NOTE | 2018-07-09 10:49 | IPNPDOC ---
Date Seen The patient was seen on 07/09/18. Progress Note SUBJECTIVE: Continues to complain of some pain on the right side of his mouth but otherwise he tells me he said no further bloody bowel movements and no more vomiting and he is getting better. OBJECT PHYSICAL EXAMINATION: VITAL SIGNS: Please see below. GENERAL: Obese disheveled man middle-age sitting up in bed appears comfortable speaking in complete sentences he is awake alert oriented 3 HEENT: Cranial nerves appear grossly intact reduced tenderness to palpation of the right mandibular region. Numerous abrasions to the right side of his face well-healing CARDIOVASCULAR: S1-S2 regular RESPIRATORY: Clear to auscultation bilaterally. ABDOMINAL: Obese bowel sounds are present mild epigastric tenderness to deep palpation EXTREMITIES: Numerous tattoos LABORATORY DATA, IMAGING STUDIES, MICROBIOLOGY: Please see below. DVT prophylaxis ordered?: Sequentials teds no pharmacological agents secondary to active bleeding ASSESSMENT AND PLAN: This is a 42-year-old man with right mandibular phlegmon/abscess and GI bleed. PROBLEMS: 1. Acute blood loss anemia secondary to GI bleed secondary to NSAID-induced gastritis: The patient admitted he was taking significant naproxen to treat his oral pain Dr. Carbajal. Did see clotted blood in the cardia as well as mucosal changes suspicious for gastritis we suspect that this is secondary to excessive naproxen is advised her against using any NSAIDs we will continue him on Protonix and Carafate. He has been transitioned to by mouth medications which is tolerating well at this time. His hemoglobin is relatively stable he is not stevenson ving any further active bleeding we will continue to monitor his H&H may require additional transfusions but my suspicion for any ongoing bleeding is low 2. Right Mandibular phlegmon/abscess: Dr. Lopez did taken to the operating room he visualized the area and stated that it was no drainable collection but that bone was exposed. Patient tells me that he in the past had shrapnel in his right mandible and has had it removed but had reconstructive surgery there tells me that he get a bone spur there which he removed in the days prior to his infection developing in that region. He tells me he has 100% service connection to the [place] And that he would like to have dental follow-up with him in the outpatient setting and he was being fitted for dentures. I have transitioned him to by mouth clindamycin he does appear improved at this time 3. Hypomagnesemia: Resolved with repletion 4. Hypertension: I will resume all of his home medications Norvasc prazosin lisinopril and hydrochlorothiazide 5. Psychiatric condition continue with venlafaxine Remeron Seroquel modafinil. 6. History of substance abuse: He has been alcohol free and IV drug free for 4 years 7. Tobacco use: cessation counseling provided 8. Hypovolemic hyponatremia: Resolved DISPOSITION: Pending stabilization of his hemoglobin and possibly home 24/48 hrs [facility]&O Vital Signs Date Time Temp Pulse Resp B/P (MAP) Pulse Ox O2 Delivery O2 Flow Rate FiO2 07/09/18 09:30 95 184/98 07/09/18 09:25 18 07/09/18 06:00 97.8 94 07/07/18 16:00 2.0 07/07/18 12:05 Room Air I&O- Last 24 Hours up to 6 AM 07/09/18 06:00 Intake Total 1770 ml Output Total 800 ml Balance 970 ml Laboratory Data 24H LABS Laboratory Tests 2 07/09/18 05:21: Immature Granulocyte % (Auto) , Nucleated Red Blood Cells % (auto) 0.9H, Neutrophils 47, Band Neutrophils 3, Lymphocytes (Manual) 31, Monocytes (Manual) 5, Eosinophils (Manual) 3, Basophils (Manual) 1, Metamyelocytes 4H, Myelocytes 6H, Platelet Estimate NORMAL, Anisocytosis 1+, Macrocytosis 1+, Anion Gap 5L, Glomerular Filtration Rate > 60.0, Blood Urea Nitrogen 9#, Creatinine 0.73, Sodium Level 139, Potassium Level 3.5, Chloride Level 103, Carbon Dioxide Level 31, Calcium Level 7.8L, Magnesium Level 2.0 CBC/BMP Laboratory Tests 07/08/18 18:07 07/09/18 05:21 Red Blood Count 2.60 L, Mean Corpuscular Volume 93.5, Mean Corpuscular Hemoglobin 31.5, Mean Corpuscular Hemoglobin Concent 33.7, Red Cell Distribution Width 13.5, Calcium Level 7.8 L Microbiology Microbiology 07/07/18 Blood Culture - Preliminary, Resulted No Growth after 48 hours. All Specime... 07/06/18 Blood Culture - Preliminary, Resulted No Growth after 48 hours. All Specime... 07/07/18 Stool Occult Blood (HERNESTO) - Final, Complete YAZMIN SORIANO MD Jul 09, 2018 10:49
[2018-07-09] MEDS: hydroCHLOROthiazide 12.5 MG CAPSULE PO SCH (10:56)
[2018-07-09] MEDS: LISINOPRIL 20 MG TAB PO SCH (11:07)
[2018-07-09 14:00] VITALS: BP 125/73
[2018-07-09 19:59] LABS: HEMATOCRIT 25.1 % (42.0-52.0); HEMOGLOBIN 8.5 g/dl (13.5-17.5)
[2018-07-09] MEDS: ATORVASTATIN 20 MG TAB PO SCH (20:50)
[2018-07-09] MEDS: MIRTAZAPINE 15 MG TAB PO SCH (20:50)
[2018-07-09] MEDS: PRAZOSIN 1 MG CAP PO SCH (20:51)
[2018-07-09 22:00] VITALS: BP 160/75
[2018-07-10] MEDS: CLINDAMYCIN 150 MG CAP PO SCH ×5 (00:22→23:58)
[2018-07-10] MEDS: ACETAMINOPHEN TAB 650MG DOSE (2X325MG) PO SCH ×5 (00:22→23:58)
[2018-07-10] MEDS: MAGIC MOUTHWASH SUSPENSION BTL SS PRN ×5 (01:15→21:29)
[2018-07-10] MEDS: oxyCODONE 5MG TAB PO PRN ×4 (04:16→21:31)
[2018-07-10 05:50] LABS: HEMATOCRIT 24.3 % (42.0-52.0); HEMOGLOBIN 8.2 g/dl (13.5-17.5); MEAN CORPUSCULAR HEMOGLOBIN 31.4 pg (27.0-33.0); MEAN CORPUSCULAR HGB CONC 33.7 g/dl (32.0-36.5); MEAN CORPUSCULAR VOLUME 93.1 fl (80.0-96.0); PLATELET COUNT, AUTOMATED 306 10^3/uL (150-450); RED BLOOD COUNT 2.61 10^6/uL (4.30-6.10); WHITE BLOOD COUNT 9.6 10^3/uL (4.0-10.0)
[2018-07-10 06:00] VITALS: BP 165/82
[2018-07-10 06:11] LABS: BLOOD UREA NITROGEN 7 MG/DL (7-18); CALCIUM LEVEL 8.2 MG/DL (8.5-10.1); CARBON DIOXIDE LEVEL 32 MEQ/L (21-32); CHLORIDE LEVEL 105 MEQ/L (98-107); CREATININE FOR GFR 0.74 MG/DL (0.70-1.30); GLOMERULAR FILTRATION RATE > 60.0 (>60); GLUCOSE, FASTING 96 MG/DL (70-100); POTASSIUM SERUM 3.5 MEQ/L (3.5-5.1); SODIUM LEVEL 141 MEQ/L (136-145)
[2018-07-10 06:34] LABS: ATYPICAL LYMPH 3 % (0-5); BASOPHILS 1 % (0-4); EOSINOPHILS 4 % (0-5); LYMPHOCYTES 47 % (16-52); MONOCYTES 5 % (0-8); MYELOCYTES 7 % (0-0); NEUTROPHILS 31 % (35-75); PLATELET ESTIMATE NORMAL (NORMAL)
[2018-07-10 06:35] LABS: POLYCHROMASIA 1+
[2018-07-10 06:36] LABS: ANISOCYTOSIS 1+
[2018-07-10] MEDS: CHLORHEXIDINE GLUCONATE 0.12 % 15ML UDC (PERIDEX ORAL RINSE) MT SCH ×2 (08:52→21:29)
[2018-07-10] MEDS: amLODIPine 10 MG TAB PO SCH (08:53)
[2018-07-10] MEDS: VENLAFAXINE **XR** 75MG CAPSULE PO SCH (08:54)
[2018-07-10] MEDS: LISINOPRIL 20 MG TAB PO SCH (08:54)
[2018-07-10] MEDS: QUEtiapine FUMARATE 50 MG TAB PO SCH ×3 (08:54→21:31)
[2018-07-10] MEDS: hydroCHLOROthiazide 12.5 MG CAPSULE PO SCH (08:54)
[2018-07-10] MEDS: MODAFINIL 200MG TABLET PO SCH (08:55)
[2018-07-10] MEDS: SUCRALFATE 1 GM TAB PO SCH ×4 (08:55→21:31)
[2018-07-10] MEDS: SENOKOT S TAB PO SCH ×2 (08:55→21:31)
[2018-07-10] MEDS: PANTOPRAZOLE 40MG TAB (PROTONIX) PO SCH ×2 (08:55→21:31)
--- NOTE | 2018-07-10 11:11 | IPNPDOC ---
Date Seen The patient was seen on 07/10/18. Progress Note SUBJECTIVE: Has no complaints at this time, tells me he is feeling better. OBJECT PHYSICAL EXAMINATION: VITAL SIGNS: Please see below. GENERAL: Obese disheveled man middle-age sleeping in bed appears comfortable easily awoken HEENT: Cranial nerves appear grossly intact reduced tenderness to palpation of the right mandibular region. CARDIOVASCULAR: S1-S2 regular RESPIRATORY: Clear to auscultation bilaterally. ABDOMINAL: Obese bowel sounds are present mild epigastric tenderness to deep palpation EXTREMITIES: Numerous tattoos LABORATORY DATA, IMAGING STUDIES, MICROBIOLOGY: Please see below. DVT prophylaxis ordered?: Sequentials teds no pharmacological agents secondary to active bleeding ASSESSMENT AND PLAN: This is a 42-year-old man with right mandibular phlegmon/abscess and GI bleed. PROBLEMS: 1. Acute blood loss anemia secondary to GI bleed secondary to NSAID-induced gastritis: The patient admitted he was taking significant naproxen to treat his oral pain Dr. Carbajal did see clotted blood in the cardia as well as mucosal changes suspicious for gastritis we suspect that this is secondary to excessive naproxen. He has been advised against using any NSAIDs we will continue him on Protonix and Carafate. He has been transitioned to by mouth medications which is tolerating well at this time. His hemoglobin is relatively stable he is not having any further active bleeding we will continue to monitor. 2. Right Mandibular phlegmon/abscess: Dr. Lopez did taken to the operating room he visualized the area and stated that it was no drainable collection but that bone was exposed. Patient tells me that he in the past had shrapnel in his right mandible and has had it removed but had reconstructive surgery there tells me that he get a bone spur there which he removed in the days prior to his infection developing in that region. He tells me he [facility] And that he would like to have dental follow-up with him in the outpatient [facility] and he was being fitted for dentures. I have transitioned him to by mouth clindamycin he does appear improved at this time 3. Hypomagnesemia: Resolved with repletion 4. Hypertension: I will resume all of his home medications Norvasc prazosin lisinopril and hydrochlorothiazide 5. Psychiatric condition continue with venlafaxine Remeron Seroquel modafinil. 6. History of substance abuse: He has been alcohol free and IV drug free for 4 years 7. Tobacco use: cessation counseling provided 8. Hypovolemic hyponatremia: Resolved DISPOSITION: Likely home tomorrow VS, I&O, 24H, Fishbone Vital Signs/I&O Vital Signs Date Time Temp Pulse Resp B/P (MAP) Pulse Ox O2 Delivery O2 Flow Rate FiO2 07/10/18 08:54 165/82 07/10/18 08:53 18 07/10/18 08:53 88 07/10/18 06:00 98.3 99 07/07/18 16:00 2.0 07/07/18 12:05 Room Air I&O- Last 24 Hours up to 6 AM 07/10/18 06:00 Intake Total 1680 ml Balance 1680 ml Laboratory Data 24H LABS Laboratory Tests 2 07/10/18 05:37: Immature Granulocyte % (Auto) , Nucleated Red Blood Cells % (auto) 1.0H, Neutrophils 31L, Band Neutrophils 2, Lymphocytes (Manual) 47, Monocytes (Manual) 5, Eosinophils (Manual) 4, Basophils (Manual) 1, Myelocytes 7H, Atypical Lymphocytes 3, Platelet Estimate NORMAL, Polychromasia 1+, Anisocytosis 1+, Macrocytosis 1+, Anion Gap 4L, Glomerular Filtration Rate > 60.0, Blood Urea Nitrogen 7, Creatinine 0.74, Sodium Level 141, Potassium Level 3.5, Chloride Level 105, Carbon Dioxide Level 32, Calcium Level 8.2L, Magnesium Level 2.0 CBC/BMP Laboratory Tests 07/09/18 19:42 07/10/18 05:37 Red Blood Count 2.61 L, Mean Corpuscular Volume 93.1, Mean Corpuscular Hemoglobin 31.4, Mean Corpuscular Hemoglobin Concent 33.7, Red Cell Distribution Width 13.7, Calcium Level 8.2 L Microbiology Microbiology 07/07/18 Blood Culture - Preliminary, Resulted No Growth after 72 hours. All specime... 07/06/18 Blood Culture - Preliminary, Resulted No Growth after 72 hours. All specime... 07/07/18 Stool Occult Blood (HERNESTO) - Final, Complete YAZMIN SORIANO MD Jul 10, 2018 11:11
[2018-07-10] MEDS ORDERED: PANT40TA3 PO (11:15)
[2018-07-10] MEDS ORDERED: OXYCO5TA PO (11:15)
[2018-07-10] MEDS ORDERED: SUCR1TA PO (11:15)
[2018-07-10] MEDS ORDERED: CLEO150C PO ×2 (11:15→11:16)
[2018-07-10] MEDS ORDERED: MAGICMW SS (11:15)
[2018-07-10 14:00] VITALS: BP 157/73
[2018-07-10] MEDS: MIRTAZAPINE 15 MG TAB PO SCH (21:31)
[2018-07-10] MEDS: ATORVASTATIN 20 MG TAB PO SCH (21:31)
[2018-07-10] MEDS: PRAZOSIN 1 MG CAP PO SCH (21:34)
[2018-07-10 22:00] VITALS: BP 152/77
[2018-07-11] MEDS: oxyCODONE 5MG TAB PO PRN ×3 (01:37→09:45)
[2018-07-11] MEDS: MAGIC MOUTHWASH SUSPENSION BTL SS PRN ×2 (01:37→09:45)
[2018-07-11] MEDS: ACETAMINOPHEN TAB 650MG DOSE (2X325MG) PO SCH ×2 (05:27→11:25)
[2018-07-11 06:00] VITALS: BP 172/86
[2018-07-11 06:50] LABS: HEMATOCRIT 23.5 % (42.0-52.0); HEMOGLOBIN 7.9 g/dl (13.5-17.5); MEAN CORPUSCULAR HEMOGLOBIN 31.2 pg (27.0-33.0); MEAN CORPUSCULAR HGB CONC 33.6 g/dl (32.0-36.5); MEAN CORPUSCULAR VOLUME 92.9 fl (80.0-96.0); PLATELET COUNT, AUTOMATED 339 10^3/uL (150-450); RED BLOOD COUNT 2.53 10^6/uL (4.30-6.10)
[2018-07-11] MEDS: CLINDAMYCIN 150 MG CAP PO SCH ×2 (06:52→11:24)
[2018-07-11 07:20] LABS: BLOOD UREA NITROGEN 9 MG/DL (7-18); CALCIUM LEVEL 8.3 MG/DL (8.5-10.1); CARBON DIOXIDE LEVEL 30 MEQ/L (21-32); CHLORIDE LEVEL 105 MEQ/L (98-107); CREATININE FOR GFR 0.84 MG/DL (0.70-1.30); GLOMERULAR FILTRATION RATE > 60.0 (>60); GLUCOSE, FASTING 133 MG/DL (70-100); MAGNESIUM LEVEL 2.1 MG/DL (1.8-2.4); POTASSIUM SERUM 3.3 MEQ/L (3.5-5.1); SODIUM LEVEL 141 MEQ/L (136-145)
[2018-07-11 07:27] LABS: ATYPICAL LYMPH 1 % (0-5); BASOPHILS 1 % (0-4); LYMPHOCYTES 27 % (16-52); METAMYELOCYTES 6 % (0-0); MONOCYTES 7 % (0-8); MYELOCYTES 8 % (0-0); NEUTROPHILS 49 % (35-75); PLATELET ESTIMATE NORMAL (NORMAL)
[2018-07-11 07:28] LABS: ANISOCYTOSIS 1+; POLYCHROMASIA 1+
[2018-07-11] MEDS: SENOKOT S TAB PO SCH (09:43)
[2018-07-11] MEDS: LISINOPRIL 20 MG TAB PO SCH (09:43)
[2018-07-11] MEDS: CHLORHEXIDINE GLUCONATE 0.12 % 15ML UDC (PERIDEX ORAL RINSE) MT SCH (09:43)
[2018-07-11] MEDS: hydroCHLOROthiazide 12.5 MG CAPSULE PO SCH (09:43)
[2018-07-11] MEDS: MODAFINIL 200MG TABLET PO SCH (09:43)
[2018-07-11] MEDS: PANTOPRAZOLE 40MG TAB (PROTONIX) PO SCH (09:43)
[2018-07-11] MEDS: QUEtiapine FUMARATE 50 MG TAB PO SCH (09:43)
[2018-07-11] MEDS: VENLAFAXINE **XR** 75MG CAPSULE PO SCH (09:43)
[2018-07-11 09:44] VITALS: BP 172/86
[2018-07-11] MEDS: SUCRALFATE 1 GM TAB PO SCH ×2 (09:44→11:24)
[2018-07-11] MEDS: amLODIPine 10 MG TAB PO SCH (09:44)
[2018-07-11] MEDS ORDERED: POTASSIUM CHLORIDE 10 MEQ SR TABLET PO ONE (11:00)
[2018-07-11 11:06] LABS: HEMATOCRIT 23.9 % (42.0-52.0); HEMOGLOBIN 8.2 g/dl (13.5-17.5)
--- NOTE | 2018-07-12 16:59 | DSES ---
DATE OF ADMISSION: 07/06/2018 DATE OF DISCHARGE: 07/11/2018 DISCHARGE DIAGNOSIS: Acute blood loss anemia secondary to upper gastrointestinal bleed. SECONDARY DIAGNOSES: 1. Gastritis secondary to nonsteroidal anti-inflammatory drugs use. 2. Right mandibular abscess. 3. Hypomagnesemia. 4. Hypertension. 5. Anxiety. 6. Posttraumatic stress disorder. 7. History of substance abuse. 8. Tobacco abuse. 9. Hypovolemic hyponatremia. HOSPITAL COURSE: The patient is a 42-year-old man who had a history of shrapnel in his right mandibular region and [facility]. He tells me that the days prior to his admission he had noticed some bone spurring out on the right mandibular area, which he pulled out manually. Since then he had noticed progressively worsening pain, swelling, and redness on the right side of his jaw. He was taking nonsteroidal anti-inflammatory drugs (NSAIDs) over-the counter continuously until presenting to the emergency room. He was admitted at that time for concern of phlegmon and abscess of the right mandibular area. Overnight after his admission he began having profuse vomiting with coffee-ground emesis and dark, tarry stools concerning for gastrointestinal (GI) bleed. He did have a drop in his hemoglobin and during his stay received 4 units of packed red blood cells (PRBC). He was seen by Dr. Carbajal who did do endoscopy and found clotted blood in the cardia, mucosal changes suspicious for gastritis. He was advised to stay on Carafate as well as Prilosec. He was also seen by Dr. Lopez of oral surgery, who states he was unable to drain any fluid collection but that he saw blessing, exposed bone. Dr. Lopez recommended close outpatient followup. Once the patient has better granulation tissue to the wound, that his gums would be closed and approximated better, but nothing could be done acutely. The patient states he wishes to have this done through the [facility], as he receives all of his dental care through there. Was also already receiving dentures through there. SUBJECTIVE: This morning the patient tells me that he has felt some residual pain, but he is improving and has no specific complaints at this time. OBJECTIVE: VITAL SIGNS: Temperature 97.9, pulse 93, respiratory rate 20, blood pressure (BP) 172/86, oxygen saturation 96% on room air. GENERAL: He is a disheveled, middle-aged man sitting up in bed. He does not appear to be in acute distress. HEENT: Moist mucous membranes. Decreased erythema, swelling, and tenderness of the right mandibular region. He has no teeth. CARDIOVASCULAR: S1, S2, regular. RESPIRATORY: Clear. ABDOMEN: Bowel sounds are present. The abdomen is soft. It is a benign exam. EXTREMITIES: No clubbing, cyanosis, or edema. Numerous tattoos. LABORATORY STUDIES: WBC 11.0, hemoglobin 8.2, platelet count 339. Chemistry panel: Sodium 141, potassium 3.3, chloride 105, bicarbonate 30, BUN 9, creatinine 0.8. Blood cultures were negative. An occult stool for blood was positive. IMAGING: The patient had a CT scan of the abdomen and pelvis, which revealed soft tissue stranding, edema, and inflammation surrounding some vessels of the pelvis. He also had an MRI of the face that revealed abnormal soft tissue signal demonstrated along the lateral aspect of the tongue extending laterally to the angle and body of the mandible, measuring 5.4 x 1.7 x 5 cm, extending almost 2 cm below the body of the mandible, consistent with a phlegmon. Patient also had a CT scan of the neck, which revealed status post a mastoidectomy. Soft tissue thickening along the buccal surface of the body and angle of the right mandible, consistent with a phlegmon. ASSESSMENT AND PLAN: This is a 42-year-old man who presented with right mandibular phlegmon and acute blood loss anemia secondary to gastrointestinal (GI) bleed related to nonsteroidal anti-inflammatory drug (NSAID) use. 1. Acute blood loss anemia secondary to GI bleed secondary to NSAID use. The patient had been taking over-the counter Naproxen to treat the pain related to his worsening oral infection. Dr. Carbajal did see clotted blood in the cardia as well as mucosal changes suspicious for gastritis. He is advised to avoid all NSAIDs. We are discharging him home on Protonix and Carafate. He has been transitioned to oral medications and is tolerating them well. His hemoglobin has remained stable. He has received 4 units total during this stay. 2. Right mandibular phlegmon and abscess. Dr. Lopez did take the patient to the operating room and visualized the area, but there was no drainable collection. He did see the bone was exposed. Patient has a history of shrapnel in the past. Dr. Lopez recommends having him re-evaluated by oral surgery in the coming months. As he has better granulation tissue, the wound may be able to be closed and then be fitted for dentures at that time. The patient is a100% service connected and wishes to get this through the [facility]. He had several days of IV antibiotics while hospitalized. I will discharge him with 7 additional days of clindamycin to ensure resolution of his oral infection. Of course, definitive therapy for the exposed bone will require further surgery. 3. Hypomagnesemia, resolved with repletion. 4. Hypertension. He was resumed, after his GI bleed resolved, on his home amlodipine, lisinopril, hydrochlorothiazide, metoprolol, modafinil, prazosin. 5. Mood disorder. He was continued on venlafaxine, Remeron, Seroquel, modafinil. 6. Tobacco use. Cessation counseling provided. 7. Hypovolemic hyponatremia, resolved with intravenous (IV) fluids. 8. History of substance abuse. 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 DISPOSITION: He is medically stable. He is at his functional baseline. His clinical syndrome is resolving. He is tolerating a soft mechanical diet. At this time he is stable for discharge home to the care of his . He is at his baseline. He is to followup with his primary care physician (PCP) in 7 days, followup with Dr. Lopez or through [facility] as soon as he is able. Activity as tolerated. Diet is soft mechanical. Return to the emergency room (ER) if symptoms worsen. Followup with Dr. Carbajal within 1 month. DISCHARGE MEDICATIONS: - clindamycin 300 mg every 6 hours for 7 additional days - Magic Mouthwash swish and swallow every 24 hours as needed for discomfort - oxycodone 5 mg every 4 hours as needed for pain, 80 tablets - pantoprazole 40 mg twice a day - Carafate 1 gram before meals and at bedtime - amlodipine 10 mg daily - atorvastatin 20 mg at bedtime - vitamin D 2000 units daily - gemfibrozil 600 mg twice a day - lisinopril/hydrochlorothiazide 20 mg/12.5 mg one tablet daily - metoprolol succinate 25 mg daily - modafinil 400 mg daily - [place]-3 polyunsaturated fatty acids 2000 mg daily - prazosin 8 mg at bedtime for nightmares - Seroquel 50 mg three times a day - venlafaxine extended release 150 mg daily Greater than 30 minutes spent organizing disposition.
== END 2018-07-11 13:17 | disposition home or self-care (01) | DRG 157 ==
LOC: EDBD 12:18 → M ED 12:18 → M ED INP 17:07 → M ICU 07-07 04:05 → M MS5PR 07-08 15:44
PROVIDERS: ADMIT Internal Medicine; ATTEND Internal Medicine
PROC: 30233N1 Transfusion of Nonautologous Red Blood Cells into Peripheral Vein, Percutaneous Approach (ICD-10-PCS; 2018-07-07)
PROC: 0N9T0ZZ Drainage of Right Mandible, Open Approach (ICD-10-PCS; principal; 2018-07-07 10:00)
PROC: 0DJ08ZZ Inspection of Upper Intestinal Tract, Via Natural or Artificial Opening Endoscopic (ICD-10-PCS; 2018-07-07 10:00)
DX: K12.2 Cellulitis and abscess of mouth (principal); K29.71 Gastritis, unspecified, with bleeding; E87.1 Hypo-osmolality and hyponatremia; D62 Acute posthemorrhagic anemia; E83.42 Hypomagnesemia; I10 Essential (primary) hypertension; F41.9 Anxiety disorder, unspecified; F43.10 Post-traumatic stress disorder, unspecified; F17.210 Nicotine dependence, cigarettes, uncomplicated; F39 Unspecified mood [affective] disorder; Z79.899 Other long term (current) drug therapy; G43.909 Migraine, unspecified, not intractable, without status migrainosus

== ENCOUNTER 2019-05-11 10:01 | Emergency (ER) | payer OTHER, MEDICARE ==
[~2019-05-11] VITALS: Ht 170.2 cm; Wt 122.7 kg
[~2019-05-11 10:01] MED LIST changes: -/DULO30CA OR; -/ESCI20TA OR; -/ESCI20TA PO; -/METO25TAB PO; -/PANT40TA PO; -/QUET10TA; +AMLO10TA5 PO; +CLEO150C PO; +CYMB1CAP5 OR; +D200CAP3 PO; +FISH7.5C PO; +GEMF600T5 PO; +HCTZ PO; +HYDR-4274 PO; -HYDRO50TAB PO; +LEXA1TAB2 OR; +LEXA1TAB2 PO; +LISI20TA19 PO; +LISINOPRIL PO; +MAGICMW SS; +METO1TAB32 PO; +METO1TAB87 PO; +OXYC1TAB23 PO; +OXYCO5TA PO; +PANT40TA3 PO; +PATIENT COMMENTS; -PERCOCET PO; +PRAZ2CAP PO; +PROT1TAB2 PO; +SERO1TAB; +SUCR1TA PO; +VENL150C43 PO
[2019-05-11 10:02] VITALS: BP 134/76
[2019-05-11] MEDS ORDERED: ELIM5CRE2 TOP (11:30)
[2019-05-11] MEDS ORDERED: BENA25CA4 PO (11:30)
[2019-05-11] MEDS ORDERED: DOXY100C37 PO (11:30)
== END 2019-05-11 13:45 | disposition home or self-care (01) ==
LOC: M ED 10:01
DX: L29.9 Pruritus, unspecified (principal); L98.8 Other specified disorders of the skin and subcutaneous tissue; Z79.2 Long term (current) use of antibiotics; Z79.891 Long term (current) use of opiate analgesic; Z79.899 Other long term (current) drug therapy; Z86.59 Personal history of other mental and behavioral disorders

== ENCOUNTER 2023-08-22 14:09 | Emergency (ER) | payer OTHER, MEDICARE ==
[~2023-08-22] VITALS: Ht 170.2 cm; Wt 120.5 kg
[~2023-08-22 14:09] MED LIST changes: -AMLO10TA5 PO; +AMLO1TAB25 PO; +BENA25CA4 PO; +DOXY-443 PO; +ELIM5CRE2 TOP; +FISH10005 PO; -FISH7.5C PO; -LISI20TA19 PO; +LISI20TA35 PO; +PANT40TA29 PO; -PANT40TA3 PO; +QUET50TA4 PO; -QUET5TAB PO
[2023-08-22 14:10] VITALS: BP 130/80; TEMP 98; O2SAT 95
[2023-08-22] MEDS ORDERED: OLAN15TA13 PO (21:58)
[2023-08-22] MEDS ORDERED: IBUP1TAB6 PO (21:58)
[2023-08-22] MEDS ORDERED: PRAZ5CAP PO (21:58)
[2023-08-22] MEDS ORDERED: OLAN1TAB20 PO ×2 (21:58)
[2023-08-22] MEDS ORDERED: VENL75CA47 PO (21:58)
[2023-08-22] MEDS ORDERED: ACET-683 PO (21:58)
[2023-08-22] MEDS ORDERED: FLOM0.4C39 PO (21:58)
[2023-08-22] MEDS ORDERED: VITA100093 PO (21:58)
[2023-08-23] MEDS ORDERED: SELF1KIT MC (07:29)
[2023-08-23] MEDS ORDERED: ATEN25TA PO (07:29)
[2023-08-23] MEDS ORDERED: LOSA100T46 PO (10:48)
[2023-08-23] MEDS ORDERED: ATEN50TA2 PO (11:03)
== END 2023-08-22 15:12 ==
LOC: M ED 14:09
DX: Z02.83 Encounter for blood-alcohol and blood-drug test (principal)

== ENCOUNTER 2023-08-22 17:51 | Observation (INO) | payer MEDICARE, OTHER ==
[~2023-08-22] VITALS: Ht 170.2 cm; Wt 120.4 kg
[2023-08-22 18:34] LABS: VENOUS BASE EXCESS 0.4 (-2.0-2.0); VENOUS HCO3 25.7 MMOL/L (23.0-27.0); VENOUS O2 SATURATION 88.9 % (60.0-80.0); VENOUS PARTIAL PRESSURE O2 58.8 mmHg (30.0-50.0); VENOUS PH 7.385 UNITS (7.330-7.430); VENOUS STANDARD HCO3 24.6 MMOL/L; VENOUS TOTAL CO2 27.1 MMOL/L (24.0-28.0)
[2023-08-22 18:43] LABS: ABG BASE EXCESS 2.2 (-2.0-2.0); ABG HCO3 27.1 MMOL/L (22.0-26.0); ABG O2 SATURATION 95.6 % (95.0-99.0); ABG PARTIAL PRESSURE CO2 43.2 mmHg (35.0-45.0); ABG PARTIAL PRESSURE O2 82.2 mmHg (75.0-100.0); ABG STANDARD HCO3 26.4 MMOL/L. (22.0-26.0); ABG TOTAL CO2 28.5 MMOL/L (22.0-29.0); ABG pH (ARTERIAL) 7.416 UNITS (7.350-7.450)
[2023-08-22 19:08] LABS: ETHYL ALCOHOL (ETHANOL) 0.006 % (0.000-0.010)
[2023-08-22 19:09] LABS: SALICYLATE LEVEL < 3.0 MG/DL (<30)
[2023-08-22 19:10] LABS: ALBUMIN 3.9 G/DL (3.2-5.2); ALKALINE PHOSPHATASE 89 U/L (46-116); ALT/SGPT 88 U/L (7.0-40); AST/SGOT 45 U/L (<34); BILIRUBIN,DIRECT 0.1 MG/DL (<0.4); BILIRUBIN,TOTAL 0.5 MG/DL (0.3-1.2); BLOOD UREA NITROGEN 18 MG/DL (9-23); CALCIUM LEVEL 9.6 MG/DL (8.5-10.1); CARBON DIOXIDE LEVEL 30 MMOL/L (20-31); CHLORIDE LEVEL 105 MMOL/L (98-107); CREATININE FOR GFR 0.77 MG/DL (0.70-1.30); GLOMERULAR FILTRATION RATE > 60.0 (>56); GLUCOSE, FASTING 90 MG/DL (60-100); POTASSIUM SERUM 3.9 MMOL/L (3.5-5.1); SODIUM LEVEL 142 MMOL/L (136-145); TOTAL PROTEIN 6.4 G/DL (5.7-8.2)
[2023-08-22 19:12] LABS: THYROID STIMULATING HORMONE 4.655 uIU/ML (0.55-4.78)
[2023-08-22 19:15] LABS: RSV AMPLIFICATION NEGATIVE (NEGATIVE)
[2023-08-22 19:28] LABS: BASO # 0.1 10^3/uL (0.0-0.2); EOS # 0.2 10^3/uL (0.0-0.5); EOS % 1.5 % (0.0-3.0); HEMATOCRIT 40.7 % (42.0-52.0); HEMOGLOBIN 14.2 g/dl (13.5-17.5); LYMPH # 2.5 10^3/uL (1.5-5.0); LYMPH % 24.3 % (24.0-44.0); MEAN CORPUSCULAR HEMOGLOBIN 29.6 pg (27.0-33.0); MEAN CORPUSCULAR HGB CONC 34.9 g/dl (32.0-36.5); MONO # 0.8 10^3/uL (0.0-0.8); MONO % 8.2 % (2.0-8.0); NEUTROPHILS # 6.5 10^3/uL (1.5-8.5); NEUTROPHILS % 63.1 % (36.0-66.0); PLATELET COUNT, AUTOMATED 347 10^3/uL (150-450); RED BLOOD COUNT 4.79 10^6/uL (4.30-6.10); WHITE BLOOD COUNT 10.2 10^3/uL (4.0-10.0)
[2023-08-22] MEDS ORDERED: hydrALAZINE 20MG/ML 1ML VIAL IV STA (20:29)
[2023-08-22] MEDS ORDERED: ISOVUE-370 76% 100ML VIAL As Ordered ONE (20:30)
[2023-08-22 20:39] LABS: ABG BASE EXCESS 1.5 (-2.0-2.0); ABG HCO3 27.3 MMOL/L (22.0-26.0); ABG O2 SATURATION 98.4 % (95.0-99.0); ABG PARTIAL PRESSURE CO2 47.7 mmHg (35.0-45.0); ABG PARTIAL PRESSURE O2 135.3 mmHg (75.0-100.0); ABG STANDARD HCO3 25.8 MMOL/L. (22.0-26.0); ABG TOTAL CO2 28.8 MMOL/L (22.0-29.0); ABG pH (ARTERIAL) 7.376 UNITS (7.350-7.450)
[2023-08-22] MEDS: NS 1,000 ML IV ONE (20:48)
[2023-08-22 20:56] LABS: CK-MB VALUE MASS 2.8 NG/ML (<3.6)
[2023-08-22 20:58] LABS: MB/CK RELATIVE INDEX 1.25 (< OR =4)
[2023-08-22] MEDS ORDERED: FLOM0.4C39 PO (21:58)
[2023-08-22] MEDS ORDERED: OLAN15TA13 PO (21:58)
[2023-08-22] MEDS ORDERED: PRAZ5CAP PO (21:58)
[2023-08-22] MEDS ORDERED: IBUP1TAB6 PO (21:58)
[2023-08-22] MEDS ORDERED: VENL75CA47 PO (21:58)
[2023-08-22] MEDS ORDERED: VITA100093 PO (21:58)
[2023-08-22] MEDS ORDERED: OLAN1TAB20 PO ×2 (21:58)
[2023-08-22] MEDS ORDERED: ACET-683 PO (21:58)
[2023-08-22] MEDS ORDERED: HOME MED LIST COMPLETE! XX SCH (22:00)
[2023-08-22 23:10] LABS: AMPHETAMINES LEVEL URINE NEGATIVE (NEGATIVE)
[2023-08-22 23:11] LABS: BARBITURATES URINE NEGATIVE (NEGATIVE); BENZODIAZEPINES URINE NEGATIVE (NEGATIVE); CANNABINOIDS URINE NEGATIVE (NEGATIVE); COCAINE METABOLITE URINE NEGATIVE (NEGATIVE); METHADONE URINE NEGATIVE (NEGATIVE); OPIATES URINE NEGATIVE (NEGATIVE); PHENCYCLIDINE URINE NEGATIVE (NEGATIVE)
[2023-08-23] VITALS (10 sets, daily range): BP systolic 126–184; BP diastolic 56–100; TEMP 97.7–97.9; O2SAT 91–98
[2023-08-23] MEDS: NS 1,000 ML IV SCH (03:16)
[2023-08-23] MEDS: LOSARTAN 50MG TABLET PO ONE ×2 (04:59→12:25)
[2023-08-23] MEDS: OLANZapine 5 MG TAB PO PRN (06:56)
[2023-08-23] MEDS ORDERED: SELF1KIT MC (07:29)
[2023-08-23] MEDS ORDERED: ATEN25TA PO (07:29)
[2023-08-23] MEDS: cloNIDine 0.1MG TABLET PO ONE ×2 (07:43→09:17)
[2023-08-23] MEDS: VENLAFAXINE **XR** 75MG CAPSULE PO SCH (07:43)
[2023-08-23] MEDS: TAMSULOSIN 0.4 MG CAP PO SCH (07:43)
[2023-08-23] MEDS: ACETAMINOPHEN TAB 650MG DOSE (2X325MG) PO PRN (07:43)
[2023-08-23] MEDS: OLANZapine 5 MG TAB PO SCH (07:44)
[2023-08-23] MEDS: VITAMIN D 1,000 INTERNATIONAL UNITS TABLET PO SCH (07:44)
[2023-08-23] MEDS: DOCUSATE SODIUM 100MG CAPSULE PO SCH (07:44)
[2023-08-23 07:47] LABS: HEMATOCRIT 39.8 % (42.0-52.0); HEMOGLOBIN 13.9 g/dl (13.5-17.5); MEAN CORPUSCULAR HEMOGLOBIN 30.1 pg (27.0-33.0); MEAN CORPUSCULAR HGB CONC 34.9 g/dl (32.0-36.5); MEAN CORPUSCULAR VOLUME 86.1 fl (80.0-96.0); PLATELET COUNT, AUTOMATED 338 10^3/uL (150-450); RED BLOOD COUNT 4.62 10^6/uL (4.30-6.10); WHITE BLOOD COUNT 8.1 10^3/uL (4.0-10.0)
[2023-08-23] MEDS: ATENOLOL 12.5MG PER 1/2 TABLET PO ONE ×2 (08:05→09:59)
[2023-08-23 08:15] LABS: BLOOD UREA NITROGEN 14 MG/DL (9-23); CALCIUM LEVEL 8.6 MG/DL (8.5-10.1); CARBON DIOXIDE LEVEL 28 MMOL/L (20-31); CHLORIDE LEVEL 108 MMOL/L (98-107); CREATININE FOR GFR 0.66 MG/DL (0.70-1.30); GLOMERULAR FILTRATION RATE > 60.0 (>56); GLUCOSE, FASTING 167 MG/DL (60-100); POTASSIUM SERUM 3.6 MMOL/L (3.5-5.1); SODIUM LEVEL 140 MMOL/L (136-145)
[2023-08-23] MEDS ORDERED: cloNIDine 0.1MG TABLET PO SCH (08:35)
[2023-08-23] MEDS ORDERED: hydroCHLOROthiazide 12.5 MG CAPSULE PO SCH (09:00)
[2023-08-23] MEDS: ALPRAZolam 0.5 MG TAB PO ONE (09:17)
[2023-08-23] MEDS ORDERED: metOLazone 5 MG TAB PO ONE (10:35)
[2023-08-23] MEDS ORDERED: LOSA100T46 PO (10:48)
[2023-08-23] MEDS ORDERED: FUROSEMIDE 40MG/4ML VIAL IV ONE (11:00)
[2023-08-23] MEDS ORDERED: ATEN50TA2 PO (11:03)
[2023-08-23 11:29] LABS: HEMOGLOBIN A1c 5.7 % (4.0-6.0)
[2023-08-23 11:40] LABS: CHOLESTEROL RISK RATIO 4.64 (<5); HDL CHOLESTEROL 40.3 MG/DL (>40); LDL CHOLESTEROL 95.1 MG/DL (<100); NON-HDL-C 146.7 MG/DL
[2023-08-23 11:42] LABS: FOLATE 15.51 NG/ML (>5.4)
[2023-08-23 11:47] LABS: ABG BASE EXCESS -0.5 (-2.0-2.0); ABG HCO3 23.8 MMOL/L (22.0-26.0); ABG O2 SATURATION 97.5 % (95.0-99.0); ABG PARTIAL PRESSURE O2 106.7 mmHg (75.0-100.0); ABG TOTAL CO2 24.9 MMOL/L (22.0-29.0); ABG pH (ARTERIAL) 7.414 UNITS (7.350-7.450)
[2023-08-23] MEDS: OLANZapine ORAL DISINTEGRATING TAB 5MG PO ONE (12:25)
[2023-08-23] MEDS: atenoloL 25 MG TAB PO ONE (13:35)
[2023-08-23 16:52] LABS: ALBUMIN 3.5 G/DL (3.2-5.2); CALCIUM LEVEL 9.1 MG/DL (8.5-10.1)
[2023-08-23 16:54] LABS: BLOOD UREA NITROGEN 15 MG/DL (9-23); CARBON DIOXIDE LEVEL 28 MMOL/L (20-31); CHLORIDE LEVEL 108 MMOL/L (98-107); GLOMERULAR FILTRATION RATE > 60.0 (>56); GLUCOSE, FASTING 151 MG/DL (60-100); SODIUM LEVEL 140 MMOL/L (136-145)
[2023-08-23] MEDS: OLANZapine 10 MG TAB PO PRN (17:42)
[2023-08-23] MEDS ORDERED: LOSARTAN 50MG TABLET PO ONE (18:00)
[2023-08-23] MEDS ORDERED: atenoloL 25 MG TAB PO SCH (21:00)
[2023-08-23] MEDS ORDERED: atenoloL 50 MG TAB PO SCH (21:00)
[2023-08-23] MEDS ORDERED: PRAZOSIN 1 MG CAP PO SCH (21:00)
[2023-08-23] MEDS ORDERED: OLANZapine 5 MG TAB PO SCH (21:00)
[2023-08-24] MEDS ORDERED: LOSARTAN 50MG TABLET PO SCH ×2 (09:00)
== END 2023-08-23 18:30 | disposition home or self-care (01) ==
LOC: M ED 17:51 → M ED INP 23:21 → INTOOBSV 23:21 → ENRESERV 08-23 00:24 → M MS5PR 08-23 02:22
PROVIDERS: ADMIT Internal Medicine; ATTEND General Practice
DX: I16.0 Hypertensive urgency (principal); I67.4 Hypertensive encephalopathy; R41.3 Other amnesia; Z87.820 Personal history of traumatic brain injury; E66.01 Morbid (severe) obesity due to excess calories; G47.30 Sleep apnea, unspecified; F43.10 Post-traumatic stress disorder, unspecified; F41.9 Anxiety disorder, unspecified; F32.A Depression, unspecified; K21.9 Gastro-esophageal reflux disease without esophagitis; R73.03 Prediabetes; Z79.899 Other long term (current) drug therapy
CPT/HCPCS: 36415; 36600; 70450; 70496; 70498; 71045; 80047; 80048; 80061; 80076; 80143; 80307; 81001; 82040; 82077; 82088; 82140; 82310; 82550; 82553; 82607; 82746; 82803; 83036; 83605; 83735; 83930; 84244; 84443; 84484; 85025; 85027; 87631; 93005; 93041; 94760; 96361; 96374; 97161; 99285; G0378; Q9967